=== PATIENT | female | born 1960 | race Caucasian/White ===

== ENCOUNTER 2016-04-25 11:31 | Emergency (ER) | payer OTHER ==
[~2016-04-25] VITALS: Ht 172.7 cm; Wt 125.5 kg
[~2016-04-25 11:31] MED LIST: 00186-0370-20 IH; ADVAIR 250/28 DISKU1 IH; ALBUTEROL1.25 MG/3 IH; AMOXICILLIN 8751 TAB PO; ATROVENT INHALE14 GM IH; ATROVENT NASAL15 ML NS; BIAXIN 500MG T500 MG PO; CALCIUM 500500 M1; CARAFATE 1GM1 G PO; CARTIA; CEFTIN 250250 MG/TAB PO; CEFTIN500 MG PO; CELESTONE30 MG/5 ML; CELESTONE30 MG/5 ML IA; CEPHALEXIN500 M1 PO; CYMBALTA 60MG60 MG PO; DESYREL DIVIDO150 M1 PO; DOCUSATE CALCI100 MG PO; EMBREL IJ; ENBREL50 MG/ML SC; FLEXERIL10 MG PO; HYDRODIURIL25 MG PO; HYGROTON25 MG PO; IMITREX ST6 MG/0.5 M SC; INDOCIN SR 75MG75 MG PO; LEVAQUIN 250MG250 MG PO; LEVAQUIN 750MG750 M1 PO; LIDODERM PATCH TP; LIDODERM5% TP; LYRICA50 MG PO; MACROBID 1100 MG/CAP PO; NAPROSYN500 MG PO; NEXIUM 40MG40 MG PO; NEXIUM40 MG PO; OXYCONTIN20 MG PO; PERCOCET 325 MG1 TA2 PO; PHENERGAN 25 TA25 MG PO; PHENERGAN W/CO120 M1 PO; PLAQUENIL 200M200 MG PO; POTASSIUM75 MG PO; POTASSIUM99 MG PO; PREDNISONE10 MG PO; PREDNISONE20 MG PO; RESTORIL 1515 MG/CAP PO; ROXICODONE15 MG PO; ROXICODONE5 MG PO; RT SPIRIVA18 MCG IH; SYNTHROID0.05 MG PO; SYNTHROID0.075 MG/T PO; SYNTHROID0.112 MG/T PO; TAZTIA180; TOPAMAX 100MG100 M1 PO; TOPAMAX50 MG PO; TRAZADONE HYDR100 MG PO; TUDORZA IH; ULTRAM 50MG TAB50 MG PO; ULTRAM ER100 MG PO; VENTOLIN0.09 MG IH; VIT D; VITAMIN D1000 IU PO; ZANAFLEX CAPSULE4 MG PO; ZITHROMAX 250M250 MG PO; ZOFRAN 4MG T4 MG/TAB PO; ZOFRAN ODT4 MG PO; [UNRECOGNIZED DRUG - OTHER]; cartia xt
[2016-04-25 11:43] VITALS: BP 130/83; TEMP 98
[2016-04-25] MEDS ORDERED: MOVANTIK25 MG PO (12:40)
[2016-04-25] MEDS ORDERED: CARTIA XT180 MG PO (12:40)
[2016-04-25 14:32] VITALS: PULSE 96
== END 2016-04-25 14:33 | disposition home or self-care (01) ==
LOC: COL.ER 11:31
DX: M54.42 Lumbago with sciatica, left side (principal); M54.41 Lumbago with sciatica, right side; Z98.1 Arthrodesis status

== ENCOUNTER 2016-06-15 18:46 | Emergency (ER) | payer MEDICARE, BC ==
[~2016-06-15] VITALS: Ht 172.7 cm; Wt 122.7 kg
[~2016-06-15 18:46] MED LIST changes: +CARTIA XT180 MG PO; +MOVANTIK25 MG PO
[2016-06-15 18:52] VITALS: TEMP 98
[2016-06-15 19:52] LABS: PH 5 (5-8); SQUAMOUS EPITHELIAL 0-2 /hpf; URINE APPEARANCE Cloudy; URINE BACTERIA Rare /hpf; URINE BILIRUBIN Negative (NEGATIVE); URINE BLOOD 2+ (NEGATIVE); URINE COLOR Yellow; URINE GLUCOSE Negative (NEGATIVE); URINE KETONE Negative (NEGATIVE); URINE RBC >50 /hpf; URINE UROBILINOGEN Negative (NEGATIVE); URINE WBC >50 /hpf
[2016-06-15] MEDS ORDERED: LEVAQUIN 2250 MG/TAB PO (20:39)
[2016-06-15] MEDS ORDERED: PYRIDIUM 100MG100 MG PO (20:39)
[2016-06-15 20:49] VITALS: BP 126/82; PULSE 118
== END 2016-06-15 20:49 | disposition home or self-care (01) ==
LOC: COL.ER 18:46
PROVIDERS: Nurse Practitioner
DX: N39.0 Urinary tract infection, site not specified (principal); J45.909 Unspecified asthma, uncomplicated

== ENCOUNTER 2016-07-12 13:53 | Day surgery (SDC) | payer MEDICARE, BC ==
[~2016-07-12] VITALS: Ht 172.7 cm; Wt 122.3 kg
[~2016-07-12 13:53] MED LIST changes: +LEVAQUIN 2250 MG/TAB PO; +PYRIDIUM 100MG100 MG PO
[2016-07-12] MEDS ORDERED: PHENTERMINE15 MG PO (14:18)
[2016-07-12] MEDS ORDERED: ULTRAM ER100 MG PO (14:19)
[2016-07-12] MEDS ORDERED: PRIL40 PO (14:20)
[2016-07-12 14:39] VITALS: BP 150/85; PULSE 106; TEMP 97.2
[2016-07-12 15:50] VITALS: BP 145/91; PULSE 109; TEMP 97.2
[2016-07-12 16:05] VITALS: BP 157/97; PULSE 110
[2016-07-12 16:20] VITALS: BP 146/73; PULSE 106
[2016-07-12 16:35] VITALS: BP 146/97; PULSE 108
== END 2016-07-12 16:45 | disposition home or self-care (01) ==
LOC: SDCO 13:53
DX: Z86.010 Personal history of colon polyps (principal); E78.00 Pure hypercholesterolemia, unspecified; M06.9 Rheumatoid arthritis, unspecified; Z96.651 Presence of right artificial knee joint; Z80.9 Family history of malignant neoplasm, unspecified; J45.909 Unspecified asthma, uncomplicated; G43.909 Migraine, unspecified, not intractable, without status migrainosus
CPT/HCPCS: OP; J2250; J2405; J3010; J7030

== ENCOUNTER 2016-11-19 18:53 | Emergency (ER) | payer MEDICARE, BC ==
[~2016-11-19] VITALS: Ht 175.3 cm; Wt 102.3 kg
[~2016-11-19 18:53] MED LIST changes: +PHENTERMINE15 MG PO; +PRIL40 PO
[2016-11-19 18:57] VITALS: BP 148/83; TEMP 98
[2016-11-19] MEDS ORDERED: SYNTHROID0.125 MG/T PO (19:07)
[2016-11-19] MEDS ORDERED: TESSALON P100 MG/CAP PO (19:27)
[2016-11-19 19:55] LABS: INFLUENZA B NEGATIVE
[2016-11-19 20:11] VITALS: PULSE 101
== END 2016-11-19 20:12 | disposition home or self-care (01) ==
LOC: COL.ER 18:53
PROVIDERS: Emergency Medicine
DX: J06.9 Acute upper respiratory infection, unspecified (principal); J02.9 Acute pharyngitis, unspecified; E03.9 Hypothyroidism, unspecified; K21.9 Gastro-esophageal reflux disease without esophagitis; Z90.49 Acquired absence of other specified parts of digestive tract; Z90.89 Acquired absence of other organs; Z98.890 Other specified postprocedural states

== ENCOUNTER 2017-06-17 20:05 | Emergency (ER) | payer MEDICARE ==
[~2017-06-17] VITALS: Ht 175.3 cm; Wt 119.2 kg
[~2017-06-17 20:05] MED LIST changes: +SYNTHROID0.125 MG/T PO; +TESSALON P100 MG/CAP PO
[2017-06-17 20:08] VITALS: TEMP 97.9
[2017-06-17] MEDS ORDERED: LEVOXYL0.112 MG PO (20:33)
[2017-06-17] MEDS ORDERED: OXYCONTIN30 MG PO (20:34)
[2017-06-17] MEDS ORDERED: PROAIR HFA0.09 MG/AC IH (20:34)
[2017-06-17 20:40] LABS: COLLECTION METHOD CLEAN CATCH
[2017-06-17 20:45] LABS: MUCOUS Present /lpf; PH 7 (5-8); SQUAMOUS EPITHELIAL 0-2 /hpf; URINE APPEARANCE Hazy; URINE BACTERIA Rare /hpf; URINE BILIRUBIN Negative (NEGATIVE); URINE BLOOD 1+ (NEGATIVE); URINE COLOR Yellow; URINE GLUCOSE Negative (NEGATIVE); URINE KETONE Negative (NEGATIVE); URINE LEUKOCYTE ESTERASE 3+ (NEGATIVE); URINE NITRATE Positive (NEGATIVE); URINE PROTEIN(semi-quant) Negative (NEGATIVE); URINE RBC 0-2 /hpf; URINE UROBILINOGEN Negative (NEGATIVE)
[2017-06-17 20:57] LABS: BASO # 0.1 (0.0-0.2); BASO % 0.5 % (0.0-2.0); EOS # 0.2 (0.0-0.7); GRAN # 5.5 (1.4-6.5); GRAN % 50.1 % (42.2-75.2); HEMATOCRIT 41.9 % (37.0-47.0); HEMOGLOBIN 14.2 g/dl (12.5-16.0); LYMPH # 4.5 (1.2-3.4); LYMPH % 40.6 % (20.0-51.0); MEAN CELL VOLUME 89 fl (80.0-100.0); MEAN CORPUSCULAR HEMOGLOBIN 30 pg (27.0-31.0); MEAN CORPUSCULAR HGB CONC 34 g/dl (33.0-37.0); MEAN PLATELET VOLUME 9.7 fl (7.4-10.4); MONO # 0.7 (0.1-0.6); MONO % 6.5 % (1.7-9.3); PLATELET COUNT 364 K/mm3 (130-400); RED BLOOD COUNT 4.71 M/mm3 (4.10-5.30)
[2017-06-17 21:08] LABS: ALBUMIN 3.8 gm/dL (3.5-5.0); BILIRUBIN,TOTAL 0.2 mg/dL (0.0-1.0); C-REACTIVE PROTEIN 0.7 mg/dL (0.0-0.9); CALCIUM 9.2 mg/dL (8.4-10.2); CREATININE, serum 0.84 mg/dL (0.52-1.25); TOTAL PROTEIN 7.8 gm/dL (6.4-8.2)
[2017-06-17] MEDS ORDERED: CEFTIN500 MG PO (21:20)
[2017-06-17 22:45] VITALS: BP 136/78; PULSE 102
== END 2017-06-17 23:07 | disposition home or self-care (01) ==
LOC: COL.ER 20:05
PROVIDERS: Emergency Medicine
DX: N39.0 Urinary tract infection, site not specified (principal); J45.909 Unspecified asthma, uncomplicated; Z87.442 Personal history of urinary calculi; Z98.890 Other specified postprocedural states; Z96.0 Presence of urogenital implants
CPT/HCPCS: J0696; J1885; J2175; J7030

== ENCOUNTER 2018-02-17 18:35 | Emergency (ER) | payer MEDICARE ==
[~2018-02-17] VITALS: Ht 175.3 cm; Wt 120.5 kg
[~2018-02-17 18:35] MED LIST changes: +LEVOXYL0.112 MG PO; +OXYCONTIN30 MG PO; +PROAIR HFA0.09 MG/AC IH
[2018-02-17 18:40] VITALS: TEMP 97.6
[2018-02-17 19:14] LABS: COLLECTION METHOD CLEAN CATCH
[2018-02-17 19:18] LABS: BASO % 0.4 % (0.0-2.0); EOS # 0.2 (0.0-0.7); GRAN % 55.1 % (42.2-75.2); LYMPH % 36.3 % (20.0-51.0); MEAN CELL VOLUME 87 fl (80.0-100.0); MEAN CORPUSCULAR HEMOGLOBIN 29 pg (27.0-31.0); MEAN CORPUSCULAR HGB CONC 33 g/dl (33.0-37.0); MEAN PLATELET VOLUME 9.8 fl (7.4-10.4); MONO # 0.7 (0.1-0.6); MONO % 5.9 % (1.7-9.3); PLATELET COUNT 388 K/mm3 (130-400); RED BLOOD COUNT 4.85 M/mm3 (4.10-5.30); REDCELL DISTRIBUTION WIDTH-CV 13.2 % (11.5-14.5)
[2018-02-17 19:20] LABS: MUCOUS Present /lpf; PH 5 (5-8); SQUAMOUS EPITHELIAL 0-2 /hpf; URINE APPEARANCE Clear; URINE BACTERIA Rare /hpf; URINE BILIRUBIN Negative (NEGATIVE); URINE BLOOD Negative (NEGATIVE); URINE COLOR Yellow; URINE GLUCOSE Negative (NEGATIVE); URINE KETONE Negative (NEGATIVE); URINE LEUKOCYTE ESTERASE Trace (NEGATIVE); URINE NITRATE Negative (NEGATIVE); URINE PROTEIN(semi-quant) Negative (NEGATIVE); URINE RBC 0-2 /hpf; URINE UROBILINOGEN Negative (NEGATIVE)
[2018-02-17 19:30] LABS: BILIRUBIN,TOTAL 0.3 mg/dL (0.0-1.0); CREATININE, serum 0.77 mg/dL (0.52-1.25); TOTAL PROTEIN 7.3 gm/dL (6.4-8.2)
[2018-02-17 19:43] LABS: CALCIUM 9.4 mg/dL (8.4-10.2); POTASSIUM 3.7 mmol/L (3.4-5.0)
[2018-02-17] MEDS ORDERED: OMNICEF 300MG300 MG PO (20:49)
[2018-02-17 21:17] VITALS: BP 162/82; PULSE 94
== END 2018-02-17 21:17 | disposition home or self-care (01) ==
LOC: COL.ER 18:35
PROVIDERS: Family Medicine
DX: R19.7 Diarrhea, unspecified (principal); I10 Essential (primary) hypertension; J20.9 Acute bronchitis, unspecified; E86.9 Volume depletion, unspecified; Z90.89 Acquired absence of other organs; Z90.710 Acquired absence of both cervix and uterus; Z90.49 Acquired absence of other specified parts of digestive tract
CPT/HCPCS: J7030

== ENCOUNTER → 2018-03-09 | Outpatient (CLI) | payer OTHER ==
[~2018-03-09] MED LIST changes: +OMNICEF 300MG300 MG PO
== END ==
LOC: COL.RAD 10:21
DX: M54.6 Pain in thoracic spine (principal)

== ENCOUNTER 2018-03-24 23:00 | Emergency (ER) | payer MEDICARE ==
[~2018-03-24] VITALS: Ht 175.3 cm; Wt 125.0 kg
[2018-03-24 23:03] VITALS: BP 146/76; TEMP 98.3
[2018-03-24] MEDS ORDERED: ROXICODONE 55 MG/TAB PO (23:39)
[2018-03-24] MEDS ORDERED: OXYCONTIN 20MG20 MG PO (23:40)
[2018-03-24] MEDS ORDERED: ULTRAM ER100 MG PO (23:40)
[2018-03-25 01:16] VITALS: PULSE 89
== END 2018-03-25 01:17 | disposition home or self-care (01) ==
LOC: COL.ER 23:00
DX: G89.18 Other acute postprocedural pain (principal); M25.531 Pain in right wrist; I10 Essential (primary) hypertension; E66.9 Obesity, unspecified; M06.9 Rheumatoid arthritis, unspecified; Z90.89 Acquired absence of other organs
CPT/HCPCS: J1170; J1885

== ENCOUNTER → 2018-07-14 | Emergency (ER) | payer MEDICARE ==
[~2018-07-14] VITALS: Ht 172.7 cm; Wt 129.5 kg
[~2018-07-14] MED LIST changes: +OXYCONTIN 20MG20 MG PO; +ROXICODONE 55 MG/TAB PO
[2018-07-14 11:38] VITALS: TEMP 98.1
[2018-07-14 12:33] VITALS: BP 143/80; PULSE 96
== END ==
LOC: COL.ER 11:33
DX: M25.572 Pain in left ankle and joints of left foot (principal); X50.1XXA Overexertion from prolonged static or awkward postures, initial encounter; Y92.009 Unspecified place in unspecified non-institutional (private) residence as the place of occurrence of the external cause

== ENCOUNTER 2018-07-25 11:33 | Inpatient (IN) | payer MEDICARE ==
[2018-07-25] VITALS (330 sets, daily range): BP systolic 74–115; BP diastolic 37–70; PULSE 119–135; TEMP 101.3–102.2; O2SAT 45–100
[~2018-07-25] VITALS: Ht 172.7 cm; Wt 141.7 kg
[2018-07-25] MEDS ORDERED: ARMOUR THYROID60 MG PO (12:05)
[2018-07-25 12:43] LABS: ALBUMIN 4.2 gm/dL (3.5-5.0); BILIRUBIN,TOTAL 0.5 mg/dL (0.0-1.0); C-REACTIVE PROTEIN 1.8 mg/dL (0.0-0.9); CALCIUM 9.3 mg/dL (8.4-10.2); CREATININE, serum 0.76 (0.52-1.25); TOTAL PROTEIN 7.8 gm/dL (6.4-8.2)
[2018-07-25 12:48] LABS: BASO # 0.1 (0.0-0.2); BASO % 0.3 % (0.0-2.0); EOS # 0.1 (0.0-0.7); EOS % 0.4 % (0-4.0); GRAN # 13.8 (1.4-6.5); GRAN % 84.3 % (42.2-75.2); HEMATOCRIT 43.4 % (37.0-47.0); HEMOGLOBIN 14.5 g/dl (12.5-16.0); LYMPH # 1.7 (1.2-3.4); LYMPH % 10.4 % (20.0-51.0); MEAN CELL VOLUME 86 fl (80.0-100.0); MEAN CORPUSCULAR HEMOGLOBIN 29 pg (27.0-31.0); MEAN CORPUSCULAR HGB CONC 33 g/dl (33.0-37.0); MEAN PLATELET VOLUME 9.9 fl (7.4-10.4); MONO # 0.7 (0.1-0.6); PLATELET COUNT 340 K/mm3 (130-400); RED BLOOD COUNT 5.03 M/mm3 (4.10-5.30); REDCELL DISTRIBUTION WIDTH-CV 13.6 % (11.5-14.5)
[2018-07-25 13:22] LABS: COLLECTION METHOD CLEAN CATCH
[2018-07-25 13:52] LABS: MUCOUS Present /lpf; PH 5 (5-8); SQUAMOUS EPITHELIAL 0-2 /hpf; URINE APPEARANCE Hazy; URINE BACTERIA Rare /hpf; URINE BILIRUBIN Negative (NEGATIVE); URINE BLOOD 1+ (NEGATIVE); URINE COLOR Yellow; URINE GLUCOSE Negative (NEGATIVE); URINE KETONE Negative (NEGATIVE); URINE LEUKOCYTE ESTERASE 1+ (NEGATIVE); URINE NITRATE Positive (NEGATIVE); URINE PROTEIN(semi-quant) Negative (NEGATIVE); URINE RBC 0-2 /hpf; URINE UROBILINOGEN Negative (NEGATIVE)
--- NOTE | 2018-07-25 16:35 | NUR ---
MD Abraham from ED here on unit assessing pt further. Additional labs and IV fluids ordered and carried out.
--- NOTE | 2018-07-25 17:04 | NUR ---
MD Zaina in room assessing pt
--- NOTE | 2018-07-25 17:10 | NUR ---
Droplet precautions in place to rule out meningitis per MD Zaina
--- NOTE | 2018-07-25 17:20 | NUR ---
Anesthesia paged 2039: Javier Robison CRNA called in - informed of lumbar puncture request by MD Zaina. Informed of recent pain pump insertion and pt's history of Meningitis.
--- NOTE | 2018-07-25 17:58 | NUR ---
MD Zaina on unit, at bedside. informed anesthesia page and return call completed, anesthesia has not been on unit
--- NOTE | 2018-07-25 18:18 | NUR ---
Africa Araujo by and stated he would be unable to perform lumbar puncture d/t existing pain pump. He did reccomend fluoroscopy guided LP performed by radiology. MD Zaina notified
--- NOTE | 2018-07-25 19:05 | NUR ---
Report received from Rashaun Mcconnell RN.
--- NOTE | 2018-07-25 19:15 | NUR ---
BEDSIDE REPORT GIVEN TO JESSE SANDHU.
[2018-07-26] VITALS (892 sets, daily range): BP systolic 97–129; BP diastolic 31–87; PULSE 97–118; TEMP 98.5–102.7; O2SAT 68–100
--- NOTE | 2018-07-26 | NUR ---
Pt was assisted up to the commode at this time. During linen change pt requested to sit in the recliner. Pt ambulated, with no lightheadedness reported and a steady gait, around the bed and into the locked recliner for approximately 5 minutes following linen change.
--- NOTE | 2018-07-26 02:00 | NUR ---
Pt requested a snack at this time. Used the bed to put onself in low fowlers position. Requested betsey crackers and peanut butter with Sprite to drink. Following snack pt reported an increase in headache although PRN pain medication had recently been provided. Pt reports medication "takes the edge off" although "does not last very long".
[2018-07-26 07:00] LABS: MEAN CELL VOLUME 85 fl (80.0-100.0); MEAN CORPUSCULAR HGB CONC 34 g/dl (33.0-37.0); MEAN PLATELET VOLUME 9.8 fl (7.4-10.4); PLATELET COUNT 260 K/mm3 (130-400); RED BLOOD COUNT 3.97 M/mm3 (4.10-5.30); REDCELL DISTRIBUTION WIDTH-CV 14.4 % (11.5-14.5)
--- NOTE | 2018-07-26 07:00 | NUR ---
Report provided to Rashaun Mcconnell RN.
[2018-07-26 07:06] LABS: CALCIUM 7.3 mg/dL (8.4-10.2); CREATININE, serum 0.84 (0.52-1.25); INR 1.4 (0.8-3.0); POTASSIUM 3.1 mmol/L (3.4-5.0); PROTHROMBIN TIME 15.9 SECONDS (9.7-12.8)
[2018-07-26 07:07] LABS: HEMATOCRIT 33.9 % (37.0-47.0); HEMOGLOBIN 11.6 g/dl (12.5-16.0); MEAN CORPUSCULAR HEMOGLOBIN 29 pg (27.0-31.0)
--- NOTE | 2018-07-26 07:14 | NUR ---
MD Stephanie notified of consult. Radiology called to inquiry on schedule - will call back with time. -- This note is regarding Fluoro guided Lumbar Puncture to r/o meningitis
[2018-07-26 07:39] LABS: BAND 10 % (0-10); LYMPHOCYTE 19 % (20.0-51.0); NEUTROPHILS 67 % (42.0-75.2)
[2018-07-26 07:40] LABS: PLATELET ESTIMATE NORMAL (NORMAL); TOXIC GRANULATION PRESENT
--- NOTE | 2018-07-26 08:04 | NUR ---
Radiology dept returned call - scheduled for 100-1030 for procedure. MD Stephanie called to speak with pt before procedure to answer questions and obtain consent
--- NOTE | 2018-07-26 10:00 | NUR ---
Pt off unit for CT and LP
--- NOTE | 2018-07-26 11:19 | NUR ---
SW attended clinical rounding Plan: Patient reports plan to return home with her Saud Goldstein as care support unless otherwise specified by DR. Assess: Patient shares that she lives locally with spouse and children. Patient reports that her is her named and written DPOA and her sister Abimael Parker is her an emergency contact secondary to and can be reached at . Patient reports obtaining RX at [facility] w/o issue. Patient denies the use of any DME. Patient reports having adv-dir and PCP is Dr. Todd Moreno at [facility]. Patient reports ability to drive but will have transport home. Action: Early stage of assessment. SW will continue to follow for care needs if they arise. No additional needs at this time.
[2018-07-26 11:28] LABS: TOTAL PROTEIN,CSF 55 mg/dL (15-45)
[2018-07-26 12:33] LABS: CSF APPEARANCE CLEAR; CSF COLOR COLORLESS; CSF MONONUCLEAR 10 % (70-100); CSF POLYMORPHONUCLEAR 90 % (0-6); CSF RBC 503 /mm3 (0-0)
--- NOTE | 2018-07-26 14:30 | NUR ---
Jose,Pharmacist called to inquire about Vancomycin Trough level - informed to continue with scheduled dose at 1500 for 1.5g IV Vancomycin
--- NOTE | 2018-07-26 21:15 | NUR ---
Moderate amount of yellowish dried drainage noted on bandage covering mid-back incision from pain pump. New bandage applied. Will continue to monitor.
[2018-07-27] VITALS (924 sets, daily range): BP systolic 96–138; BP diastolic 53–80; PULSE 99–116; TEMP 98.2–102.5; O2SAT 43–100
--- NOTE | 2018-07-27 | NUR ---
Patient continues to report having a headache; located in forehead and back of neck. Has PRN fentanyl; tolerates well but reports if "wears off fast". No other complaints at this time.
--- NOTE | 2018-07-27 03:26 | NUR ---
Called [facility] to report elevated Temp of 102.5. Tachycardia increased from baseline around 105 to 115. 650 PO Tylenol administered. Preliminary wound culture positive for staph. Reported abx william receiving. Awaiting further orders.
--- NOTE | 2018-07-27 04:40 | NUR ---
Dr. Mosqueda called to get update on patient. Updated on current status; latest temp and current abx. Requested to speak to patient on telephone as she is alert and oriented and currenlty awake.
[2018-07-27 08:27] LABS: BASO % 0.2 % (0.0-2.0); EOS # 0.1 (0.0-0.7); EOS % 0.8 % (0-4.0); GRAN # 13.1 (1.4-6.5); HEMOGLOBIN 10.6 g/dl (12.5-16.0); LYMPH # 2.7 (1.2-3.4); LYMPH % 15.9 % (20.0-51.0); MEAN CELL VOLUME 87 fl (80.0-100.0); MEAN CORPUSCULAR HEMOGLOBIN 29 pg (27.0-31.0); MEAN CORPUSCULAR HGB CONC 33 g/dl (33.0-37.0); MEAN PLATELET VOLUME 9.9 fl (7.4-10.4); MONO % 5.6 % (1.7-9.3); PLATELET COUNT 208 K/mm3 (130-400); RED BLOOD COUNT 3.65 M/mm3 (4.10-5.30); REDCELL DISTRIBUTION WIDTH-CV 14.5 % (11.5-14.5)
[2018-07-27 08:28] LABS: HEMATOCRIT 31.7 % (37.0-47.0); INR 1.2 (0.8-3.0); PROTHROMBIN TIME 14.3 SECONDS (9.7-12.8)
[2018-07-27 08:34] LABS: CALCIUM 7.7 mg/dL (8.4-10.2); CREATININE, serum 0.7 (0.52-1.25); MAGNESIUM 1.8 mg/dL (1.6-2.3); POTASSIUM 3.7 mmol/L (3.4-5.0)
--- NOTE | 2018-07-27 09:00 | NUR ---
portable chest x-ray order to confirm PICC tip location this a.m. Yesterday patient was unable to have head of bed elevated and was essentially flat for portable chest x-ray for PICC insertion yesterday. I want to confirm tip location before catheter pulled back. Portable chest x-ray reviewed and tip location noted in the lower SVC/cavoatrial junction. I will leave tip location as is. No signs or symptoms of complications noted. No concerns voiced.
--- NOTE | 2018-07-27 18:35 | NUR ---
Call from [facility]: Room 4030 has been assigned. Suni Mckeonupervisor called. Report attempted to call, RN on unit busy and unable to take report at this time. Fatiamh at [phone] is the admission/intake individual I spoke with
--- NOTE | 2018-07-27 19:40 | NUR ---
Patient assessment completed and charted at this time, please see documentation for details. Patient resting in bed, no questions at this time, complaining of headache. Patient informed of pending transfer, will notify with ETA for to follow. *2114: Spoke with Ambrosio, Beer Cooler and no transportation available as of yet. [facility] team notified at this time. Patient sleeping.
--- NOTE | 2018-07-27 19:49 | NUR ---
Report phoned to JESSE Montgomery at [facility], questions invited and answered
[2018-07-28] VITALS (60 sets, daily range): BP systolic 131; BP diastolic 82; PULSE 112; TEMP 98.7; O2SAT 93–100
--- NOTE | 2018-07-28 01:17 | NUR ---
Patient taken by [facility] to be transported to [facility] for higher level of care. Report had been given prior in evening, [facility] transfer team notified of patient ETA. Passing off care of patient at this time.
== END 2018-07-28 01:17 | disposition short-term general hospital (02) | DRG 862 ==
LOC: COL.ER 11:33 → ICU 15:45
PROVIDERS: Emergency Medicine; Nurse Practitioner; Physician Assistant
PROC: 02HV33Z Insertion of Infusion Device into Superior Vena Cava, Percutaneous Approach (ICD-10-PCS; principal; 2018-07-26)
PROC: 009U3ZX Drainage of Spinal Canal, Percutaneous Approach, Diagnostic (ICD-10-PCS; 2018-07-26)
PROC: B01B1ZZ Fluoroscopy of Spinal Cord using Low Osmolar Contrast (ICD-10-PCS; 2018-07-26)
DX: T81.44XA Sepsis following a procedure, initial encounter (principal); R65.20 Severe sepsis without septic shock; G03.9 Meningitis, unspecified; E87.2 Acidosis; N39.0 Urinary tract infection, site not specified; Z68.41 Body mass index [BMI] 40.0-44.9, adult; I10 Essential (primary) hypertension; G89.29 Other chronic pain; M54.9 Dorsalgia, unspecified; D64.9 Anemia, unspecified; E87.6 Hypokalemia; B95.0 Streptococcus, group A, as the cause of diseases classified elsewhere; B96.20 Unspecified Escherichia coli [E. coli] as the cause of diseases classified elsewhere; E66.01 Morbid (severe) obesity due to excess calories; E03.9 Hypothyroidism, unspecified; Z88.5 Allergy status to narcotic agent; Z91.048 Other nonmedicinal substance allergy status; K37 Unspecified appendicitis
CPT/HCPCS: 99223-AI; 99233-AI; A4216; C1751; J0696; J0780; J1170; J1200; J1885; J2060; J2185; J2405; J2765; J3010; J3370; J3475; J3480; J7030; J7050; Q9967

== ENCOUNTER 2018-08-07 08:11 | Outpatient (CLI) | payer OTHER ==
[~2018-08-07] VITALS: Ht 172.7 cm; Wt 131.6 kg
[~2018-08-07 08:11] MED LIST changes: +ARMOUR THYROID60 MG PO
--- NOTE | 2018-08-07 09:00 | NUR ---
patient here for PICC assessment. Right upper arm PICC intact. Dressing dated 08/06. Unable to flush 1 port. Other port with good blood return noted. Chest x-ray done to determine tip location. Informed primary care nurse to obtain an order for cath winnie.
[2018-08-07 10:37] VITALS: BP 134/56; PULSE 83; TEMP 97
--- NOTE | 2018-08-07 11:20 | NUR ---
CATH FLOW GIVEN AT 1050, IN 30 MINS 1120 ABLE TO FLUSH PURPLE LINE AND GET 10CC OF BLOOD RETURN, WRAPPED SITE, PT WILL GET LAB AND MED AT HOME
== END 2018-08-07 11:45 | disposition home or self-care (01) ==
LOC: EUO 08:11
DX: Z45.2 Encounter for adjustment and management of vascular access device (principal); J98.6 Disorders of diaphragm; I51.7 Cardiomegaly
CPT/HCPCS: J2997

== ENCOUNTER 2018-08-16 20:52 | Emergency (ER) | payer OTHER ==
[~2018-08-16] VITALS: Ht 167.6 cm; Wt 113.6 kg
[2018-08-16 20:58] VITALS: BP 143/80; TEMP 98.2
[2018-08-16 21:57] LABS: BASO # 0.1 (0.0-0.2); BASO % 0.7 % (0.0-2.0); EOS # 0.2 (0.0-0.7); EOS % 2.2 % (0-4.0); GRAN # 4.2 (1.4-6.5); GRAN % 45.6 % (42.2-75.2); HEMATOCRIT 38.6 % (37.0-47.0); HEMOGLOBIN 12.9 g/dl (12.5-16.0); LYMPH % 43.2 % (20.0-51.0); MEAN CELL VOLUME 88 fl (80.0-100.0); MEAN CORPUSCULAR HEMOGLOBIN 29 pg (27.0-31.0); MEAN CORPUSCULAR HGB CONC 33 g/dl (33.0-37.0); MEAN PLATELET VOLUME 9.9 fl (7.4-10.4); MONO # 0.7 (0.1-0.6); MONO % 8.1 % (1.7-9.3); PLATELET COUNT 337 K/mm3 (130-400); REDCELL DISTRIBUTION WIDTH-CV 14.2 % (11.5-14.5)
[2018-08-16 22:12] LABS: ALANINE AMINOTRANSFERASE 34 U/L (9-52); ALBUMIN 3.8 gm/dL (3.5-5.0); ALKALINE PHOSPHATASE 104 U/L (50-136); ANION GAP 11 mmol/L (7-16); AST,SGOT 39 U/L (15-37); BILIRUBIN,TOTAL 0.4 mg/dL (0.0-1.0); BLOOD UREA NITROGEN 11 mg/dL (7-17); C-REACTIVE PROTEIN 0.8 mg/dL (0.0-0.9); CARBON DIOXIDE 23 mmol/L (22-30); CHLORIDE 106 mmol/L (98-107); CREATININE, serum 0.71 (0.52-1.25); GLUCOSE 107 mg/dL (74-106); POTASSIUM 3.5 mmol/L (3.4-5.0); SODIUM 140 mmol/L (137-145); TOTAL PROTEIN 7.3 gm/dL (6.4-8.2)
[2018-08-16 22:35] LABS: TROPONIN-I < 0.012 ng/mL (0.000-0.035)
[2018-08-16 23:45] VITALS: PULSE 88
== END 2018-08-16 23:43 | disposition home or self-care (01) ==
LOC: COL.ER 20:52
PROVIDERS: Emergency Medicine
DX: I10 Essential (primary) hypertension (principal); J45.909 Unspecified asthma, uncomplicated
CPT/HCPCS: J2060; J2405; J3010; J7030; Q9967

== ENCOUNTER 2018-08-21 08:14 | Day surgery (SDC) | payer MEDICARE ==
[~2018-08-21] VITALS: Ht 172.7 cm; Wt 130.1 kg
[2018-08-21] MEDS ORDERED: PREDNISONE10 MG (08:31)
[2018-08-21 08:41] VITALS: BP 120/83; PULSE 95; TEMP 96.3
[2018-08-21 10:10] VITALS: BP 130/68; PULSE 87; TEMP 96.4
--- NOTE | 2018-08-21 10:18 | NUR ---
Initial visit; Patient thanked [employer] for offering comfort and prayer prior to her 'procedure.' [employer] offered spiritual care and offered God's blessings.
[2018-08-21 10:25] VITALS: BP 134/75; PULSE 80
[2018-08-21 10:40] VITALS: BP 137/66; PULSE 75
[2018-08-21 10:55] VITALS: BP 141/72; PULSE 83
--- NOTE | 2018-08-21 11:46 | NUR ---
1110 PT CAME BACK FROM ENDO PROCEDURE ALERT AND ORIENTATED, SLEEPY. DENIES PAIN, NAUSEA, VOMITING. OFFERED SPRITE, VANILLA PUDDING AND BLUBERRY MUFFIN AND TOLERATED WELL WITHOUT N/V OR PAIN. PT [id number] CAME TO ENDO TO PICK HER UP, NATALYA. DISCHARGE INSTRUCTIONS GIVEN, PT VOICED UNDERSTANDING. IV DC'D TO LEFT HAND, PT TOLERATED WELL. PT DC'D BY W/C TO FRIEND'S VEHICLE TO PT HOME.
== END 2018-08-21 11:10 | disposition home or self-care (01) ==
LOC: SDCO 08:14
DX: K29.30 Chronic superficial gastritis without bleeding (principal); K31.7 Polyp of stomach and duodenum; K21.9 Gastro-esophageal reflux disease without esophagitis; R19.7 Diarrhea, unspecified; M06.9 Rheumatoid arthritis, unspecified; M79.7 Fibromyalgia; G89.29 Other chronic pain; Z90.49 Acquired absence of other specified parts of digestive tract; Z90.721 Acquired absence of ovaries, unilateral; Z96.659 Presence of unspecified artificial knee joint; Z79.52 Long term (current) use of systemic steroids; Z88.5 Allergy status to narcotic agent; Z88.6 Allergy status to analgesic agent; Z88.2 Allergy status to sulfonamides; Z88.8 Allergy status to other drugs, medicaments and biological substances; Z91.013 Allergy to seafood; Z91.048 Other nonmedicinal substance allergy status; J45.909 Unspecified asthma, uncomplicated; E66.01 Morbid (severe) obesity due to excess calories; G40.909 Epilepsy, unspecified, not intractable, without status epilepticus; E03.9 Hypothyroidism, unspecified
CPT/HCPCS: J2704

== ENCOUNTER 2018-09-05 17:42 | Emergency (ER) | payer MEDICARE ==
[~2018-09-05] VITALS: Ht 172.7 cm; Wt 129.5 kg
[~2018-09-05 17:42] MED LIST changes: +PREDNISONE10 MG
[2018-09-05 17:53] VITALS: TEMP 98.1
[2018-09-05 20:00] VITALS: BP 138/62; PULSE 68
== END 2018-09-05 20:00 | disposition home or self-care (01) ==
LOC: COL.ER 17:42
DX: M79.605 Pain in left leg (principal); E03.9 Hypothyroidism, unspecified; J45.909 Unspecified asthma, uncomplicated; Z90.49 Acquired absence of other specified parts of digestive tract; Z87.891 Personal history of nicotine dependence; Z90.89 Acquired absence of other organs

== ENCOUNTER 2018-12-16 12:42 | Emergency (ER) | payer MEDICARE ==
[~2018-12-16] VITALS: Ht 172.7 cm; Wt 127.7 kg
[2018-12-16 12:48] VITALS: BP 131/73; TEMP 97.8
[2018-12-16 13:28] LABS: BASO # 0.1 (0.0-0.2); BASO % 0.4 % (0.0-2.0); EOS # 0.2 (0.0-0.7); EOS % 1.2 % (0-4.0); GRAN # 8.5 (1.4-6.5); GRAN % 61.5 % (42.2-75.2); HEMATOCRIT 42.8 % (37.0-47.0); HEMOGLOBIN 14.2 g/dl (12.5-16.0); LYMPH # 4.1 (1.2-3.4); LYMPH % 29.6 % (20.0-51.0); MEAN CELL VOLUME 87 fl (80.0-100.0); MEAN CORPUSCULAR HEMOGLOBIN 29 pg (27.0-31.0); MEAN CORPUSCULAR HGB CONC 33 g/dl (33.0-37.0); MEAN PLATELET VOLUME 9.5 fl (7.4-10.4); PLATELET COUNT 347 K/mm3 (130-400); REDCELL DISTRIBUTION WIDTH-CV 14.1 % (11.5-14.5)
[2018-12-16] MEDS ORDERED: DESYREL 50MG50 MG PO (13:31)
[2018-12-16 13:32] LABS: ALBUMIN 4.3 gm/dL (3.5-5.0); BILIRUBIN,TOTAL 0.4 mg/dL (0.0-1.0); CALCIUM 9.7 mg/dL (8.4-10.2); CREATININE, serum 0.77 (0.52-1.25); TOTAL PROTEIN 7.9 gm/dL (6.4-8.2)
[2018-12-16 13:41] LABS: C-REACTIVE PROTEIN 0.5 mg/dL (0.0-0.9)
[2018-12-16 15:02] LABS: COLLECTION METHOD CLEAN CATCH
[2018-12-16 15:12] LABS: MUCOUS Present /lpf; PH 5 (5-8); SQUAMOUS EPITHELIAL 0-2 /hpf; URINE APPEARANCE Clear; URINE BACTERIA None Seen /hpf; URINE BILIRUBIN Negative (NEGATIVE); URINE BLOOD Negative (NEGATIVE); URINE COLOR Yellow; URINE GLUCOSE Negative (NEGATIVE); URINE KETONE Negative (NEGATIVE); URINE LEUKOCYTE ESTERASE Negative (NEGATIVE); URINE NITRATE Negative (NEGATIVE); URINE PROTEIN(semi-quant) Negative (NEGATIVE); URINE RBC None Seen /hpf; URINE UROBILINOGEN Negative (NEGATIVE)
[2018-12-16 16:48] VITALS: PULSE 98
== END 2018-12-16 16:48 | disposition home or self-care (01) ==
LOC: COL.ER 12:42
PROVIDERS: Emergency Medicine
DX: R10.9 Unspecified abdominal pain (principal); Z90.89 Acquired absence of other organs
CPT/HCPCS: J2405; J3010; J7030; Q9967

== ENCOUNTER 2019-10-12 10:42 | Emergency (ER) | payer MEDICARE ==
[~2019-10-12] VITALS: Ht 170.2 cm; Wt 95.5 kg
[~2019-10-12 10:42] MED LIST changes: +DESYREL 50MG50 MG PO
[2019-10-12 10:51] VITALS: TEMP 97.5
[2019-10-12 11:54] LABS: BASO % 0.4 % (0.0-2.0); EOS # 0.1 (0.0-0.7); EOS % 0.5 % (0-4.0); GRAN # 7.1 (1.4-6.5); GRAN % 75.8 % (42.2-75.2); HEMATOCRIT 41.3 % (37.0-47.0); HEMOGLOBIN 13.4 g/dl (12.5-16.0); LYMPH # 1.8 (1.2-3.4); LYMPH % 18.6 % (20.0-51.0); MEAN CELL VOLUME 89 fl (80.0-100.0); MEAN CORPUSCULAR HEMOGLOBIN 29 pg (27.0-31.0); MEAN CORPUSCULAR HGB CONC 32 g/dl (33.0-37.0); MEAN PLATELET VOLUME 10.4 fl (7.4-10.4); MONO # 0.4 (0.1-0.6); MONO % 4.4 % (1.7-9.3); PLATELET COUNT 309 K/mm3 (130-400); RED BLOOD COUNT 4.66 M/mm3 (4.10-5.30); REDCELL DISTRIBUTION WIDTH-CV 13.5 % (11.5-14.5)
[2019-10-12 12:12] LABS: ALANINE AMINOTRANSFERASE 22 U/L (4-34); ALKALINE PHOSPHATASE 125 U/L (50-136); ANION GAP 10 mmol/L (7-16); AST,SGOT 33 U/L (15-37); BILIRUBIN,TOTAL 0.5 mg/dL (0.0-1.0); BLOOD UREA NITROGEN 12 mg/dL (7-17); CALCIUM 9.5 mg/dL (8.4-10.2); CARBON DIOXIDE 24 mmol/L (22-30); CHLORIDE 105 mmol/L (98-107); CREATININE, serum 0.77 (0.52-1.25); GLUCOSE 111 mg/dL (74-106); POTASSIUM 3.4 mmol/L (3.4-5.0); SODIUM 138 mmol/L (137-145); TOTAL PROTEIN 7.3 gm/dL (6.4-8.2)
[2019-10-12 12:14] LABS: C-REACTIVE PROTEIN < 0.5 mg/dL (0.0-0.9)
[2019-10-12] MEDS ORDERED: PERCOCET 325 MG1 TA2 PO (14:10)
[2019-10-12] MEDS ORDERED: FLOMAX 0.40.4 MG/CAP PO (14:10)
[2019-10-12] MEDS ORDERED: PHENERGAN 25 TA25 MG PO (14:10)
[2019-10-12 14:22] LABS: COLLECTION METHOD CLEAN CATCH
[2019-10-12 14:26] VITALS: BP 128/81; PULSE 88
[2019-10-12 14:31] LABS: MUCOUS Present /lpf; PH 5 (5-8); SQUAMOUS EPITHELIAL 0-2 /hpf; URINE APPEARANCE Hazy; URINE BACTERIA None Seen /hpf; URINE BILIRUBIN Negative (NEGATIVE); URINE BLOOD 2+ (NEGATIVE); URINE COLOR Yellow; URINE GLUCOSE Negative (NEGATIVE); URINE KETONE Negative (NEGATIVE); URINE LEUKOCYTE ESTERASE Negative (NEGATIVE); URINE NITRATE Negative (NEGATIVE); URINE PROTEIN(semi-quant) Negative (NEGATIVE); URINE UROBILINOGEN Negative (NEGATIVE)
== END 2019-10-12 14:28 | disposition home or self-care (01) ==
LOC: COL.ER 10:42
PROVIDERS: Emergency Medicine
DX: N20.1 Calculus of ureter (principal); N23 Unspecified renal colic; Z88.6 Allergy status to analgesic agent
CPT/HCPCS: J1170; J1790; J1885; J2405; J3010; J7030; Q9967

== ENCOUNTER 2019-10-16 13:42 | Day surgery (SDC) | payer MEDICARE ==
[~2019-10-16] VITALS: Ht 172.7 cm; Wt 98.9 kg
[2019-10-16] VITALS (7 sets, daily range): BP systolic 104–129; BP diastolic 52–71; PULSE 78–88; TEMP 97.1–98.1
[~2019-10-16 13:42] MED LIST changes: +FLOMAX 0.40.4 MG/CAP PO
--- NOTE | 2019-10-16 17:50 | NUR ---
Patient alert and oriented, answers questions appropriately. Post op cystoscopy. Ambulates to bathroom and voids 200ml clear yellow urine, no burning voiced. Requests supper meal. Post of VS and exercises reviewed with patient. No c/o at this time.
--- NOTE | 2019-10-16 19:00 | NUR ---
Pt. sitting up in bed at this time. Pt. has met dischcharge criteria. Gave pt. discharged paperwork. Pt. voices understanding. INT discontinued from lt. hand. Pt. escorted out by FARROWING MANAGER.
== END 2019-10-16 19:29 | disposition home or self-care (01) ==
LOC: SDCO 13:42 → SURG 17:23 → SDCO 19:29
DX: N20.1 Calculus of ureter (principal); J45.909 Unspecified asthma, uncomplicated; E03.9 Hypothyroidism, unspecified; M79.7 Fibromyalgia; M06.9 Rheumatoid arthritis, unspecified; Z86.14 Personal history of Methicillin resistant Staphylococcus aureus infection; Z20.828 Contact with and (suspected) exposure to other viral communicable diseases; Z96.651 Presence of right artificial knee joint; Z90.49 Acquired absence of other specified parts of digestive tract; Z79.899 Other long term (current) drug therapy; Z88.6 Allergy status to analgesic agent; Z88.5 Allergy status to narcotic agent; Z91.048 Other nonmedicinal substance allergy status; Z80.52 Family history of malignant neoplasm of bladder; Z80.51 Family history of malignant neoplasm of kidney; Z82.49 Family history of ischemic heart disease and other diseases of the circulatory system
CPT/HCPCS: OP; C1769; C2617; J0690; J2405; J2704; J3010; J7120; Q9967

== ENCOUNTER 2019-10-25 09:16 | Day surgery (SDC) | payer MEDICARE ==
[~2019-10-25] VITALS: Ht 170.2 cm; Wt 98.1 kg
[2019-10-25 11:03] VITALS: BP 126/70; PULSE 119; TEMP 97.3
[2019-10-25 12:59] VITALS: BP 108/61; PULSE 76
--- NOTE | 2019-10-25 12:59 | NUR ---
Returns to room 3 per cart from surgery accompanied Anna MOLINA and Paul ABERNATHY. Awake and alert. IV fluids infusing. Denies pain or nausea. Siderails up x2 and call light in reach. Spouse in room.
[2019-10-25 13:14] VITALS: BP 114/72; PULSE 69
--- NOTE | 2019-10-25 13:14 | NUR ---
Awake and is eating muffin and drinking juice. Continues to deny pain or nausea.
[2019-10-25 13:29] VITALS: BP 125/61; PULSE 72
--- NOTE | 2019-10-25 13:29 | NUR ---
Resting and offers no complaints of pain or nausea.
--- NOTE | 2019-10-25 14:05 | NUR ---
Returns to the room after urinating pink tinged urine. Gait steady and denies need for pain medication. States that she is ready to go home. IV discontinued and dresses self.
--- NOTE | 2019-10-25 14:29 | NUR ---
Discharge instructions given and signed. Patient dismissed to home driven by spouse and taken to the front door per wheelchair and assisted into vehicle by this RN with instructions in hand.
== END 2019-10-25 14:29 | disposition home or self-care (01) ==
LOC: SDCO 09:16
DX: N20.1 Calculus of ureter (principal); J45.909 Unspecified asthma, uncomplicated; E03.9 Hypothyroidism, unspecified; K75.9 Inflammatory liver disease, unspecified; M06.9 Rheumatoid arthritis, unspecified; Z90.49 Acquired absence of other specified parts of digestive tract; G43.909 Migraine, unspecified, not intractable, without status migrainosus; G89.29 Other chronic pain; K21.9 Gastro-esophageal reflux disease without esophagitis; Z46.6 Encounter for fitting and adjustment of urinary device; Z86.14 Personal history of Methicillin resistant Staphylococcus aureus infection; Z96.651 Presence of right artificial knee joint; Z88.5 Allergy status to narcotic agent; Z86.711 Personal history of pulmonary embolism
CPT/HCPCS: J0690; J1885; J2405; J2704; J3010; J7120

== ENCOUNTER → 2019-12-09 | Outpatient (CLI) | payer MEDICARE | LOC: COL.RAD 13:58 | DX: R10.11 Right upper quadrant pain (principal); Z87.442 Personal history of urinary calculi ==

== ENCOUNTER 2019-12-16 10:12 | Emergency (ER) | payer MEDICARE ==
[~2019-12-16] VITALS: Ht 172.7 cm; Wt 92.7 kg
[2019-12-16] MEDS ORDERED: PREDNISONE20 MG PO (13:50)
[2019-12-16 14:02] VITALS: BP 100/84; PULSE 95; TEMP 98.1
== END 2019-12-16 14:03 | disposition home or self-care (01) ==
LOC: COL.ER 10:12
DX: U07.1 COVID-19 (principal); J20.9 Acute bronchitis, unspecified; J45.909 Unspecified asthma, uncomplicated; Z23 Encounter for immunization; Z90.49 Acquired absence of other specified parts of digestive tract; Z88.5 Allergy status to narcotic agent; Z88.6 Allergy status to analgesic agent

== ENCOUNTER 2019-12-29 20:50 | Emergency (ER) | payer MEDICARE ==
[~2019-12-29] VITALS: Ht 172.7 cm; Wt 91.4 kg
[2019-12-29 21:10] VITALS: BP 145/94; TEMP 98
[2019-12-29 21:48] LABS: BASO % 0.3 % (0.0-2.0); EOS # 0.1 (0.0-0.7); EOS % 0.7 % (0-4.0); GRAN # 5.1 (1.4-6.5); GRAN % 55.9 % (42.2-75.2); HEMATOCRIT 42.3 % (37.0-47.0); LYMPH # 3.4 (1.2-3.4); LYMPH % 36.9 % (20.0-51.0); MEAN CELL VOLUME 83 fl (80.0-100.0); MEAN CORPUSCULAR HEMOGLOBIN 28 pg (27.0-31.0); MEAN CORPUSCULAR HGB CONC 33 g/dl (33.0-37.0); MEAN PLATELET VOLUME 10.4 fl (7.4-10.4); MONO # 0.6 (0.1-0.6); PLATELET COUNT 300 K/mm3 (130-400); REDCELL DISTRIBUTION WIDTH-CV 14.1 % (11.5-14.5)
[2019-12-29 22:01] LABS: ALANINE AMINOTRANSFERASE 39 U/L (4-34); ALKALINE PHOSPHATASE 97 U/L (50-136); ANION GAP 11 mmol/L (7-16); AST,SGOT 36 U/L (15-37); BILIRUBIN,TOTAL 0.5 mg/dL (0.0-1.0); BLOOD UREA NITROGEN 16 mg/dL (7-17); CALCIUM 9.1 mg/dL (8.4-10.2); CARBON DIOXIDE 24 mmol/L (22-30); CHLORIDE 102 mmol/L (98-107); GLUCOSE 114 mg/dL (74-106); POTASSIUM 3.6 mmol/L (3.4-5.0); SODIUM 138 mmol/L (137-145); TOTAL PROTEIN 7.2 gm/dL (6.4-8.2)
[2019-12-29 22:14] LABS: TROPONIN-I < 0.012 ng/mL (0.000-0.035)
[2019-12-29 22:24] LABS: BASOPHIL 1 % (0-2); LYMPHOCYTE 42 % (20.0-51.0); NEUTROPHILS 50 % (42.0-75.2); PLATELET ESTIMATE NORMAL (NORMAL)
[2019-12-29] MEDS ORDERED: DOXYCYCLINE 10100 MG PO (23:15)
[2019-12-30 00:22] VITALS: PULSE 91
== END 2019-12-30 00:24 | disposition home or self-care (01) ==
LOC: COL.ER 20:50
PROVIDERS: Nurse Practitioner
DX: U07.1 COVID-19 (principal); J12.89 Other viral pneumonia; Z88.5 Allergy status to narcotic agent; Z88.2 Allergy status to sulfonamides; Z88.6 Allergy status to analgesic agent; Z88.8 Allergy status to other drugs, medicaments and biological substances; Z98.890 Other specified postprocedural states
CPT/HCPCS: J2930; J7030; Q9967

== ENCOUNTER 2020-05-12 23:03 | Observation (INO) | payer MEDICARE ==
[~2020-05-12] VITALS: Ht 175.3 cm; Wt 86.4 kg
[~2020-05-12 23:03] MED LIST changes: +DOXYCYCLINE 10100 MG PO
[2020-05-12 23:27] LABS: BASO % 0.3 % (0.0-2.0); EOS # 0.1 (0.0-0.7); EOS % 0.6 % (0-4.0); GRAN # 7.4 (1.4-6.5); GRAN % 64.6 % (42.2-75.2); HEMATOCRIT 40.6 % (37.0-47.0); HEMOGLOBIN 13.1 g/dl (12.5-16.0); LYMPH # 3.2 (1.2-3.4); LYMPH % 28.4 % (20.0-51.0); MEAN CELL VOLUME 87 fl (80.0-100.0); MEAN CORPUSCULAR HEMOGLOBIN 28 pg (27.0-31.0); MEAN CORPUSCULAR HGB CONC 32 g/dl (33.0-37.0); MEAN PLATELET VOLUME 10.7 fl (7.4-10.4); MONO # 0.7 (0.1-0.6); MONO % 5.8 % (1.7-9.3); PLATELET COUNT 341 K/mm3 (130-400); RED BLOOD COUNT 4.65 M/mm3 (4.10-5.30); REDCELL DISTRIBUTION WIDTH-CV 13.5 % (11.5-14.5)
[2020-05-12 23:33] LABS: ALANINE AMINOTRANSFERASE 26 U/L (4-34); ALBUMIN 4.2 gm/dL (3.5-5.0); ALKALINE PHOSPHATASE 112 U/L (50-136); ANION GAP 11 mmol/L (7-16); AST,SGOT 27 U/L (15-37); BILIRUBIN,TOTAL 0.1 mg/dL (0.0-1.0); BLOOD UREA NITROGEN 17 mg/dL (7-17); CARBON DIOXIDE 22 mmol/L (22-30); CHLORIDE 107 mmol/L (98-107); CREATININE, serum 0.59 (0.52-1.25); GLUCOSE 137 mg/dL (74-106); POTASSIUM 3.7 mmol/L (3.4-5.0); SODIUM 140 mmol/L (137-145); TOTAL PROTEIN 7.8 gm/dL (6.4-8.2)
[2020-05-12 23:44] LABS: TROPONIN-I < 0.012 ng/mL (0.000-0.035)
[2020-05-13] VITALS (9 sets, daily range): BP systolic 110–126; BP diastolic 49–68; PULSE 63–105; TEMP 97.7–98.4
[2020-05-13] MEDS ORDERED: RELISTOR I12 MG/0.6 IJ (00:36)
--- NOTE | 2020-05-13 01:33 | NUR ---
PATIENT ARRIVED TO ROOM 359 FROM THE ER VIA WHEELCHAIR. PATIENT ALERT AND ORIENTED X'S 4. ABLE TO AMBULATE INDEPENDENTLY TO BED FROM THE WHEELCHAIR, ON ROOM AIR, DENIES PAIN OR NAUSEA AT THIS TIME. PATIENT ORIENTED TO ROOM. CALL LIGHT WITHIN REACH, BED IN LOWEST POSITION. NO REQUESTS OR CONCERNS VERBALIZED BY PATIENT AT THIS TIME.
--- NOTE | 2020-05-13 04:08 | NUR ---
BEKA GOLDSTEIN NOTIFIED OF PATIENTS D-DIMER. CT SCAN ORDERED AND PATIENT TAKEN TO CT BY THIS NURSE. PATIENT TOLERATED WELL.
[2020-05-13 07:06] LABS: BASO % 0.3 % (0.0-2.0); EOS % 0.4 % (0-4.0); GRAN # 5.4 (1.4-6.5); GRAN % 60.3 % (42.2-75.2); HEMOGLOBIN 12.2 g/dl (12.5-16.0); LYMPH # 2.9 (1.2-3.4); LYMPH % 32.1 % (20.0-51.0); MEAN CELL VOLUME 88 fl (80.0-100.0); MEAN CORPUSCULAR HEMOGLOBIN 28 pg (27.0-31.0); MEAN CORPUSCULAR HGB CONC 32 g/dl (33.0-37.0); MEAN PLATELET VOLUME 11.2 fl (7.4-10.4); MONO # 0.6 (0.1-0.6); MONO % 6.6 % (1.7-9.3); PLATELET COUNT 307 K/mm3 (130-400); RED BLOOD COUNT 4.33 M/mm3 (4.10-5.30); REDCELL DISTRIBUTION WIDTH-CV 13.6 % (11.5-14.5)
[2020-05-13 07:19] LABS: CALCIUM 9.1 mg/dL (8.4-10.2); CREATININE, serum 0.57 (0.52-1.25); POTASSIUM 3.6 mmol/L (3.4-5.0)
--- NOTE | 2020-05-13 13:23 | NUR ---
First visit from the fishing tool supervisor. prayed with patient. No other needs right now.
[2020-05-13] MEDS ORDERED: CEPHALEXIN500 M1 PO (16:46)
--- NOTE | 2020-05-13 17:13 | NUR ---
Patient resting in bed eating dinner at this time. Patient is alert and oriented, answers questions appropriately. Patient to procedures this morning, c/o headache after stress test; PRN acetaminophen given. Loop recorder placed at bedside and patient educated by laborer shellfish processing staff. Patient denied further questions. Denies further needs, call light within reach.
--- NOTE | 2020-05-13 18:29 | NUR ---
Discharge teaching completed. Discussed discharge instructions, medications, and follow up appointments, patient verbalized understanding. INT removed, catheter intact, hemostasis achieved. Telemetry unit removed. Patient dressed and escorted to ED entrance.
== END 2020-05-13 18:35 | disposition home or self-care (01) ==
LOC: COL.ER 23:03 → MEDICAL 05-13 00:29
PROVIDERS: Physician Assistant; Student in an Organized Health Care Education/Training Program; ADMIT Hospitalist
DX: R55 Syncope and collapse (principal); R00.2 Palpitations; I10 Essential (primary) hypertension; M06.9 Rheumatoid arthritis, unspecified; M79.7 Fibromyalgia; G89.29 Other chronic pain; M54.9 Dorsalgia, unspecified; G43.909 Migraine, unspecified, not intractable, without status migrainosus; E66.9 Obesity, unspecified; J45.909 Unspecified asthma, uncomplicated; G47.30 Sleep apnea, unspecified; K21.9 Gastro-esophageal reflux disease without esophagitis; E03.9 Hypothyroidism, unspecified; Z90.89 Acquired absence of other organs; Z90.49 Acquired absence of other specified parts of digestive tract; Z96.651 Presence of right artificial knee joint; Z79.899 Other long term (current) drug therapy; Z79.890 Hormone replacement therapy; Z88.5 Allergy status to narcotic agent; Z88.2 Allergy status to sulfonamides; Z91.048 Other nonmedicinal substance allergy status; Z88.8 Allergy status to other drugs, medicaments and biological substances; Z98.890 Other specified postprocedural states
CPT/HCPCS: A9500; C1764; G0378; J1650; J2785; Q9967

== ENCOUNTER 2020-07-05 21:14 | Emergency (ER) | payer MEDICARE ==
[~2020-07-05] VITALS: Ht 172.7 cm; Wt 81.8 kg
[~2020-07-05 21:14] MED LIST changes: +RELISTOR I12 MG/0.6 IJ
[2020-07-05 21:32] VITALS: TEMP 97.1
[2020-07-05 22:18] LABS: BASO % 0.3 % (0.0-2.0); EOS # 0.1 (0.0-0.7); EOS % 1.5 % (0-4.0); GRAN # 4.7 (1.4-6.5); GRAN % 52.8 % (42.2-75.2); HEMATOCRIT 38.9 % (37.0-47.0); HEMOGLOBIN 12.7 g/dl (12.5-16.0); LYMPH # 3.5 (1.2-3.4); LYMPH % 39.6 % (20.0-51.0); MEAN CELL VOLUME 89 fl (80.0-100.0); MEAN CORPUSCULAR HEMOGLOBIN 29 pg (27.0-31.0); MEAN CORPUSCULAR HGB CONC 33 g/dl (33.0-37.0); MEAN PLATELET VOLUME 10.1 fl (7.4-10.4); MONO # 0.5 (0.1-0.6); MONO % 5.6 % (1.7-9.3); PLATELET COUNT 311 K/mm3 (130-400); RED BLOOD COUNT 4.39 M/mm3 (4.10-5.30); REDCELL DISTRIBUTION WIDTH-CV 14.6 % (11.5-14.5)
[2020-07-05 22:27] LABS: ALANINE AMINOTRANSFERASE 17 U/L (4-34); ALBUMIN 3.9 gm/dL (3.5-5.0); ALKALINE PHOSPHATASE 103 U/L (50-136); ANION GAP 3 mmol/L (7-16); AST,SGOT 25 U/L (15-37); BILIRUBIN,TOTAL 0.3 mg/dL (0.0-1.0); BLOOD UREA NITROGEN 17 mg/dL (7-17); CALCIUM 9.2 mg/dL (8.4-10.2); CARBON DIOXIDE 25 mmol/L (22-30); CHLORIDE 107 mmol/L (98-107); CREATININE, serum 0.61 (0.52-1.25); GLUCOSE 96 mg/dL (74-106); POTASSIUM 3.5 mmol/L (3.4-5.0); SODIUM 135 mmol/L (137-145); TOTAL PROTEIN 7.4 gm/dL (6.4-8.2)
[2020-07-05 22:39] LABS: TROPONIN-I < 0.012 ng/mL (0.000-0.035)
[2020-07-05 22:50] LABS: MAGNESIUM 1.9 mg/dL (1.6-2.3); PHOSPHOROUS 4.3 mg/dL (2.5-4.5)
[2020-07-06 00:15] VITALS: BP 118/62; PULSE 97
== END 2020-07-06 00:21 | disposition home or self-care (01) ==
LOC: COL.ER 21:14
PROVIDERS: Emergency Medicine
DX: R00.2 Palpitations (principal); I47.9 Paroxysmal tachycardia, unspecified; R55 Syncope and collapse; J45.909 Unspecified asthma, uncomplicated; E66.9 Obesity, unspecified

== ENCOUNTER 2020-07-27 07:04 | Inpatient (IN) | payer MEDICARE ==
[~2020-07-27] VITALS: Ht 172.7 cm; Wt 88.1 kg
[2020-07-27] VITALS (13 sets, daily range): BP systolic 95–133; BP diastolic 54–96; PULSE 63–81; TEMP 97.8–98.2
[2020-07-27 08:32] LABS: HEMOGLOBIN 12.2 g/dl (12.5-16.0); MEAN CELL VOLUME 88 fl (80.0-100.0); MEAN CORPUSCULAR HEMOGLOBIN 30 pg (27.0-31.0); MEAN CORPUSCULAR HGB CONC 33 g/dl (33.0-37.0); MEAN PLATELET VOLUME 10.1 fl (7.4-10.4); PLATELET COUNT 274 K/mm3 (130-400); RED BLOOD COUNT 4.14 M/mm3 (4.10-5.30); REDCELL DISTRIBUTION WIDTH-CV 13.8 % (11.5-14.5)
[2020-07-27 08:33] LABS: HEMATOCRIT 36.6 % (37.0-47.0)
[2020-07-27] MEDS ORDERED: HYGROTON 2525 MG/TAB (08:33)
[2020-07-27] MEDS ORDERED: ROXICODONE 55 MG/TAB PO (08:36)
[2020-07-27] MEDS ORDERED: OXYCONTIN 20MG20 MG PO (08:36)
[2020-07-27 08:39] LABS: CALCIUM 8.9 mg/dL (8.4-10.2); CREATININE, serum 0.59 (0.52-1.25); POTASSIUM 3.4 mmol/L (3.4-5.0)
[2020-07-27 08:50] LABS: PROTHROMBIN TIME 11.6 SECONDS (9.7-12.8)
[2020-07-27] MEDS ORDERED: CELESTONE30 MG/5 ML INJ (09:02)
[2020-07-27] MEDS ORDERED: NEXIUM 40MG40 MG PO (09:03)
[2020-07-27] MEDS ORDERED: D3-5050000 IU PO (09:03)
[2020-07-27] MEDS ORDERED: PROAIR HFA0.09 MG/AC IH (09:04)
[2020-07-27] MEDS ORDERED: LIDODERM 5% PATC1 EA TP (09:04)
[2020-07-27] MEDS ORDERED: DESYREL 50MG50 MG PO (09:05)
--- NOTE | 2020-07-27 09:07 | NUR ---
Pt to procedure.report to Loi Mcdonnell.
--- NOTE | 2020-07-27 09:22 | NUR ---
SEE MERGE FOR ALL MEDICATION ADMINISTRATION TIMES, INTRA AND POST SEDATION ASSESSMENTS
--- NOTE | 2020-07-27 12:15 | NUR ---
Patient received from lab clerk. Report from Keica. Patient resting in bed. family at bedside. Patient complaints of pain to Left chest. Prn roxicodone given per orders. ice pack to chest. lunch ordered. hank quiros.
--- NOTE | 2020-07-27 13:30 | NUR ---
Patient pain remains elevated at 7/10. Cardiology notifed. Concerns of hematoma, benneath icd insertion-skin feels firm. Pressure dressing per orders and ice pack on. Sling in place. Pillow benneath sling to relieve pulling pressure. Patient reports an allergy to paper tape. (removed all papertape from skin and foam tape used for pressure). Vss ,tele on.
--- NOTE | 2020-07-27 16:06 | NUR ---
Patietn resting in bed. Visiting with family memeber. Reports a headache. Tyelnol PRN given. Still rating pain 8/10. Ice pack to left chest. Pressure dressing intact. Ivf to L.hand. Tolerating diet without nausea. Tele on. Will monitor
--- NOTE | 2020-07-27 16:52 | NUR ---
Patient up to the bathroom, voided without difficulty. Continues to have pain in her chest. Oxicodone given, tyelnol did not relieve pain. incisions site CDI. Vss, HR 60s. Will continue to montior.
--- NOTE | 2020-07-27 19:12 | NUR ---
Patient reports her pain is better managed at this time. 05/16. She is feeling better. Sling remains on. ice pack to insertion site. Site CDI. Ivf. She tolerated dinner. Report to alejandranurse
--- NOTE | 2020-07-27 20:30 | NUR ---
PATIENT IS CALM IN THE ROOM.DUE MEDS GIVEN.ASSESSMENT DONE.NO BLEEDING OBSERVED ON THE LT CHEST SITE.RATES PAIN AT 5.MEDICATION GIVEN PER ORDER.
--- NOTE | 2020-07-27 22:47 | NUR ---
PATIENT HAS A LOW BP 95/66 TELEHEALTH COORDINATOR SERVICE TEAM LEADER INFORMED PLAN HOLD SOTALOL.GAVE ANCEF IV 1G X2 HAD NOT SEEN THE 2G ANCEF.PATIENT TOOK TRAZODONE 5OMG SAYS THATS HER REGULAR DOSE.
[2020-07-28 00:01] VITALS: BP 90/49; PULSE 83; TEMP 98.1
--- NOTE | 2020-07-28 06:14 | NUR ---
PATIENT HAD A CALM NIGHT.DUE MEDS GIVEN.PATIENT STATES THAT SHE TALKED TO HER DOCTOR ABOUT SOME MEDS DOSAGE.TOOK HER REGULAR DOSAGE.REPORTS OF HEADACHE TYLENOL GIVEN.NO OTHER NEEDS AT THIS TIME.
--- NOTE | 2020-07-28 06:45 | NUR ---
awake resting in bed, bedside shift report received from JESSE Peng
[2020-07-28 07:16] VITALS: BP 87/52; PULSE 75; TEMP 98.3
[2020-07-28 07:43] VITALS: BP 106/57; PULSE 70; TEMP 98.2
[2020-07-28 07:47] LABS: CALCIUM 8.2 mg/dL (8.4-10.2); CREATININE, serum 0.59 (0.52-1.25); MAGNESIUM 1.7 mg/dL (1.6-2.3); POTASSIUM 3.7 mmol/L (3.4-5.0)
--- NOTE | 2020-07-28 08:35 | NUR ---
in bed and appears to be sleeping, eyes closed, resp quiet and easy, sling in place to left arm
--- NOTE | 2020-07-28 09:16 | NUR ---
reuesting tylenol for a headache, explained it is too early for tylenol and offered roxicodone, she declines this and will wait until time for tylenol
--- NOTE | 2020-07-28 09:38 | NUR ---
LINDSEY met with the patient to discuss discharge plan. The patient lives in [place] with her , Ricky (ph#[phone]). She reports independence with ADLs and does not have any DME. The patient's PCP is Dr. Todd Moreno and she receives her medications from [facility]. She reports no difficulties obtaining her meds. The patient does not have a DPOA-HC in EMR, but she states that she does have one completed and that Dr. Moreno's office should have a copy of it. She states that she designated her . LINDSEY contacted Dr. Moreno's office to inquire if they have her DPOA-HC. The receptionist secretary reports that they do not. The patient plans to return home with his upon discharge. No additional needs at this time. *Discharge plan: home with *
--- NOTE | 2020-07-28 09:50 | NUR ---
medicated now with tyelnol 650mg for c/os headache, full assessment completed, see interventions for further info, states was up to bathroom and had some nausea and dry heaves but feels ok now
--- NOTE | 2020-07-28 10:46 | NUR ---
Initial visit; Patient thanked [employer] for offering prayer and God's blessings for a thorough and rapid recovery.
--- NOTE | 2020-07-28 11:06 | NUR ---
resting now, states headache is better but not completely gone, Dr Copeland was in to see patient
[2020-07-28 11:37] VITALS: BP 84/54; PULSE 60; TEMP 98.5
--- NOTE | 2020-07-28 11:43 | NUR ---
dressing removed from placement of ICD and loop recorder removal, BP 86/54, Dr Copeland notified of blood pressure after giving sotolol this am and states he is OK with BP, incision at placement of ICD is CD&I
--- NOTE | 2020-07-28 12:30 | NUR ---
resting in bed without needs
--- NOTE | 2020-07-28 13:50 | NUR ---
appears to be sleeping, in bed with eyes closed, resp quiet and easy
--- NOTE | 2020-07-28 14:54 | NUR ---
resting in bed, REPEATER CHIEF in to see patient, patient denies needs
[2020-07-28 16:00] VITALS: BP 105/61; PULSE 69; TEMP 98.5
--- NOTE | 2020-07-28 18:30 | NUR ---
lying back in bed and trying to eat supper, declines needing help to sit up and eat
--- NOTE | 2020-07-28 20:00 | NUR ---
PATIENT IS CALM IN THE ROOM.REPORTS OF HEADACHE MEDS GIVEN PER ORDER.NO OTHER NEEDS AT THIS TIME.
[2020-07-28 20:46] VITALS: BP 101/53; PULSE 81; TEMP 98.9
[2020-07-29] VITALS (10 sets, daily range): BP systolic 96–137; BP diastolic 50–74; PULSE 63–85; TEMP 97.9–98.7
--- NOTE | 2020-07-29 06:17 | NUR ---
PATIENT HAD A RESTFUL NIGHT.DENIES PAIN.ON NPO FOR EP STUDY TODAY,NO OTHER NEEDS AT THIS TIME.
[2020-07-29 07:04] LABS: CALCIUM 8.5 mg/dL (8.4-10.2); CREATININE, serum 0.5 (0.52-1.25); POTASSIUM 3.8 mmol/L (3.4-5.0)
--- NOTE | 2020-07-29 10:00 | NUR ---
Patient alert and oriented, answers questions appropriately. See assessment. Incision to left chest with edges well approximated, no redness or drainage noted. Sling in place to LUE. Heart tones strong and even, no c/o chest pain or pressure. No other c/o at this time.
[2020-07-29] MEDS ORDERED: CEPHALEXIN500 M1 PO (11:49)
[2020-07-29] MEDS ORDERED: BETAPACE 80MG80 MG PO (11:50)
--- NOTE | 2020-07-29 17:16 | NUR ---
Discharge instructions reviewed with patient, verbalized understanding. Discharged via wheelchair to auto/home with spouse at 1710.
== END 2020-07-29 17:10 | disposition home or self-care (01) | DRG 227 ==
LOC: COL.CAR 07:04 → SURG 11:07 → COL.CAR 11:23 → SURG 11:24
PROVIDERS: ADMIT Internal Medicine Cardiovascular Disease
PROC: 0JH608Z Insertion of Defibrillator Generator into Chest Subcutaneous Tissue and Fascia, Open Approach (ICD-10-PCS; principal; 2020-07-27)
PROC: 02HK3KZ Insertion of Defibrillator Lead into Right Ventricle, Percutaneous Approach (ICD-10-PCS; 2020-07-27)
PROC: 02H63KZ Insertion of Defibrillator Lead into Right Atrium, Percutaneous Approach (ICD-10-PCS; 2020-07-27)
PROC: 0JPT32Z Removal of Monitoring Device from Trunk Subcutaneous Tissue and Fascia, Percutaneous Approach (ICD-10-PCS; 2020-07-27)
DX: I47.2 Ventricular tachycardia (principal); I10 Essential (primary) hypertension; M06.9 Rheumatoid arthritis, unspecified; J45.909 Unspecified asthma, uncomplicated; E66.9 Obesity, unspecified; Z90.49 Acquired absence of other specified parts of digestive tract; Z88.6 Allergy status to analgesic agent; Z88.2 Allergy status to sulfonamides; Z88.8 Allergy status to other drugs, medicaments and biological substances; Z20.822 Contact with and (suspected) exposure to COVID-19; Z68.28 Body mass index [BMI] 28.0-28.9, adult
CPT/HCPCS: C1769; C1777; C1894; C1898; J0690; J2250; J2405; J2704; J3010; J7030

== ENCOUNTER 2020-08-08 17:05 | Emergency (ER) | payer MEDICARE ==
[~2020-08-08] VITALS: Ht 172.7 cm; Wt 80.9 kg
[~2020-08-08 17:05] MED LIST changes: +BETAPACE 80MG80 MG PO; +CELESTONE30 MG/5 ML INJ; +D3-5050000 IU PO; +HYGROTON 2525 MG/TAB; +LIDODERM 5% PATC1 EA TP
[2020-08-08 17:21] VITALS: TEMP 99.1
[2020-08-08 17:47] LABS: BASO % 0.4 % (0.0-2.0); EOS # 0.1 (0.0-0.7); EOS % 1.5 % (0-4.0); GRAN # 5.3 (1.4-6.5); GRAN % 57.6 % (42.2-75.2); LYMPH # 3.1 (1.2-3.4); LYMPH % 33.8 % (20.0-51.0); MEAN CELL VOLUME 87 fl (80.0-100.0); MEAN CORPUSCULAR HEMOGLOBIN 29 pg (27.0-31.0); MEAN CORPUSCULAR HGB CONC 33 g/dl (33.0-37.0); MEAN PLATELET VOLUME 10.3 fl (7.4-10.4); MONO # 0.6 (0.1-0.6); MONO % 6.6 % (1.7-9.3); PLATELET COUNT 248 K/mm3 (130-400); RED BLOOD COUNT 4.17 M/mm3 (4.10-5.30)
[2020-08-08 17:49] LABS: HEMATOCRIT 36.3 % (37.0-47.0)
[2020-08-08 17:55] LABS: INR 1.1 (0.8-3.0); PROTHROMBIN TIME 11.8 SECONDS (9.7-12.8)
[2020-08-08 17:58] LABS: ALBUMIN 3.6 gm/dL (3.5-5.0); BILIRUBIN,TOTAL 0.3 mg/dL (0.0-1.0); CREATININE, serum 0.6 (0.52-1.25); PARTIAL THROMBOPLASTIN TIME 30.5 SECONDS (26.0-37.0); POTASSIUM 3.7 mmol/L (3.4-5.0); TOTAL PROTEIN 6.6 gm/dL (6.4-8.2)
[2020-08-08 18:08] VITALS: BP 128/82; PULSE 78
== END 2020-08-08 18:08 | disposition home or self-care (01) ==
LOC: COL.ER 17:05
PROVIDERS: Family Medicine
DX: R20.2 Paresthesia of skin (principal); M79.7 Fibromyalgia; J45.909 Unspecified asthma, uncomplicated; G43.909 Migraine, unspecified, not intractable, without status migrainosus; K21.9 Gastro-esophageal reflux disease without esophagitis; E66.9 Obesity, unspecified; E03.9 Hypothyroidism, unspecified; Z98.84 Bariatric surgery status; Z88.6 Allergy status to analgesic agent; Z79.891 Long term (current) use of opiate analgesic

== ENCOUNTER 2020-08-16 07:14 | Observation (INO) | payer MEDICARE ==
[2020-08-16] VITALS (8 sets, daily range): BP systolic 98–118; BP diastolic 60–74; PULSE 63–71; TEMP 97.5–98.1
--- NOTE | 2020-08-16 10:02 | NUR ---
Patient admitted to room 323 direct admit at [address]15 for kidney stone per Dr Pollard. See assessment. NPO since 2300 08/15/20. Took Tylenol 1000mg po at 0700. C/o intermittent right flank pain. Consent signed. No other c/o at this time.
--- NOTE | 2020-08-16 12:13 | NUR ---
Discharge Plan: Home Sw met with the pt who stated her preference to return home once medically stable. The pt lives at home with her , Ricky (ph#: [phone]) and the person to notify is her siser, Janak (ph# [phone]). The pt PCP is Todd Rodriguez and uses [facility] for her pharmacy. The pt is independent and ues no DME. The pt does not have a DPAO-HC and is not interested in one at this time. No other needs stated at this time. Sw to follow up as needed.
--- NOTE | 2020-08-16 12:22 | NUR ---
Patient returns from cysto at 1135. Assessment unchanged except urinary stents taped to left thigh. No c/o at this time.
--- NOTE | 2020-08-16 14:42 | NUR ---
Discharge instructions reviewed with patient, verbalized understanding. Discharged via wheelchair to auto/home with family at 1439.
== END 2020-08-16 14:39 | disposition home or self-care (01) ==
LOC: SURG 07:14
PROVIDERS: ADMIT Urology
DX: R10.12 Left upper quadrant pain (principal); J45.909 Unspecified asthma, uncomplicated; M79.7 Fibromyalgia; E03.9 Hypothyroidism, unspecified; M06.9 Rheumatoid arthritis, unspecified; Z90.49 Acquired absence of other specified parts of digestive tract; Z79.890 Hormone replacement therapy; Z79.899 Other long term (current) drug therapy; Z87.442 Personal history of urinary calculi
CPT/HCPCS: C1769; C2617; G0378; G0379; J0690; J1100; J1885; J2405; J2704; J2765; J3010; J7030; Q9967

== ENCOUNTER 2020-11-18 22:12 | Emergency (ER) | payer MEDICARE ==
[~2020-11-18] VITALS: Ht 172.7 cm; Wt 84.5 kg
[2020-11-18 22:17] VITALS: TEMP 97.8
[2020-11-18 22:33] LABS: BASO # 0.1 K/mm3 (0.0-0.2); BASO % 0.4 % (0.0-2.0); EOS # 0.2 K/mm3 (0.0-0.7); EOS % 1.5 % (0-4.0); GRAN # 5.8 K/mm3 (1.4-6.5); GRAN % 51.9 % (42.2-75.2); HEMATOCRIT 39.3 % (37.0-47.0); HEMOGLOBIN 12.8 g/dl (12.5-16.0); LYMPH # 4.4 K/mm3 (1.2-3.4); LYMPH % 39.1 % (20.0-51.0); MEAN CELL VOLUME 89 fl (80.0-100.0); MEAN CORPUSCULAR HEMOGLOBIN 29 pg (27.0-31.0); MEAN CORPUSCULAR HGB CONC 33 g/dl (33.0-37.0); MEAN PLATELET VOLUME 9.9 fl (7.4-10.4); MONO # 0.8 K/mm3 (0.1-0.6); MONO % 6.9 % (1.7-9.3); PLATELET COUNT 291 K/mm3 (130-400); RED BLOOD COUNT 4.41 M/mm3 (4.10-5.30); REDCELL DISTRIBUTION WIDTH-CV 13.4 % (11.5-14.5)
[2020-11-18 22:51] LABS: ALANINE AMINOTRANSFERASE 18 U/L (0-55); ALBUMIN 3.4 gm/dL (3.4-4.8); ALKALINE PHOSPHATASE 91 U/L (0-750); ANION GAP 11 mmol/L (7-16); AST,SGOT 21 U/L (5-34); BILIRUBIN,TOTAL 0.3 mg/dL (0.2-1.2); BLOOD UREA NITROGEN 15 mg/dL (10-20); CALCIUM 9.1 mg/dL (8.4-10.2); CARBON DIOXIDE 19 mmol/L (23-31); CHLORIDE 111 mmol/L (98-107); CREATININE, serum 0.73 mg/dL (0.57-1.11); GLUCOSE 86 mg/dL (70-99); POTASSIUM 3.5 mmol/L (3.5-4.5); SODIUM 141 mmol/L (136-145); TOTAL PROTEIN 6.9 gm/dL (6.2-8.1)
[2020-11-18 22:59] LABS: TROPONIN-I < 0.010 ng/mL (0.00-0.033)
[2020-11-18 23:46] VITALS: BP 97/67; PULSE 72
== END 2020-11-18 23:46 | disposition home or self-care (01) ==
LOC: COL.ER 22:12
PROVIDERS: Physician Assistant
DX: Z86.79 Personal history of other diseases of the circulatory system (principal); Z95.810 Presence of automatic (implantable) cardiac defibrillator; J45.909 Unspecified asthma, uncomplicated; E03.9 Hypothyroidism, unspecified; Z79.890 Hormone replacement therapy; Z79.899 Other long term (current) drug therapy

== ENCOUNTER 2020-12-16 08:28 | Inpatient (IN) | payer MEDICARE ==
[~2020-12-16] VITALS: Ht 172.7 cm; Wt 94.1 kg
[2020-12-21 09:12] VITALS: BP 97/57; PULSE 68; TEMP 98.4
[2020-12-21 09:52] LABS: BASO % 0.4 % (0.0-2.0); EOS # 0.1 K/mm3 (0.0-0.7); EOS % 1.9 % (0-4.0); GRAN # 3.8 K/mm3 (1.4-6.5); GRAN % 51.5 % (42.2-75.2); HEMOGLOBIN 12.3 g/dl (12.5-16.0); LYMPH # 2.8 K/mm3 (1.2-3.4); LYMPH % 38.2 % (20.0-51.0); MEAN CELL VOLUME 89 fl (80.0-100.0); MEAN CORPUSCULAR HEMOGLOBIN 30 pg (27.0-31.0); MEAN CORPUSCULAR HGB CONC 33 g/dl (33.0-37.0); MONO # 0.6 K/mm3 (0.1-0.6); MONO % 7.9 % (1.7-9.3); PLATELET COUNT 271 K/mm3 (130-400); RED BLOOD COUNT 4.17 M/mm3 (4.10-5.30); REDCELL DISTRIBUTION WIDTH-CV 13.1 % (11.5-14.5)
[2020-12-21 09:56] LABS: PROTHROMBIN TIME 11.2 SECONDS (9.7-12.8)
[2020-12-21 10:11] LABS: ALBUMIN 3.1 gm/dL (3.4-4.8); BILIRUBIN,TOTAL 0.4 mg/dL (0.2-1.2); CALCIUM 8.8 mg/dL (8.4-10.2); CREATININE, serum 0.66 mg/dL (0.57-1.11); MAGNESIUM 1.9 mg/dL (1.6-2.6); POTASSIUM 3.5 mmol/L (3.5-4.5); TOTAL PROTEIN 6.1 gm/dL (6.2-8.1)
[2020-12-21] MEDS ORDERED: ARMOUR THYROID60 MG PO (10:43)
[2020-12-21] MEDS ORDERED: WOMEN'S DAILY1 TAB PO (10:46)
[2020-12-21] MEDS ORDERED: AIRBORNE ELDER1 EACH PO (10:51)
[2020-12-21 12:30] VITALS: BP 103/63; PULSE 83; TEMP 97.9
--- NOTE | 2020-12-21 14:02 | NUR ---
market research worker met with patient to discuss discharge plan. Patient states that she lives at home with her Ricky([phone]) here in [place]. Patient reports that she is independent with all of her ADL's and she does not utilize any medical equipment to assist with mobility. Reports to not having any O2 needs. Patient reports that her PCP is at [facility] and that she utilizes [facility] for perscription needs with no cost difficulty. Patient reports that she does have a DPOA-HC established and that [facility] has a copy of it on file. Permission given to contact [facility] and request a copy. Patient is planning on returning home post dc with no concerns. [facility] contacted and the cracker and cookie machine operator verbalizes that since Dr. Moreno has left, that this patient has been assigned to Dr. Ojeda. Message left for Dr. Ojeda's nurse. Discharge plan: Home
[2020-12-21 17:20] VITALS: BP 111/60; PULSE 86; TEMP 98.4
[2020-12-21 19:30] VITALS: BP 110/48; PULSE 94; TEMP 98.5
[2020-12-22] VITALS (8 sets, daily range): BP systolic 89–117; BP diastolic 42–57; PULSE 68–85; TEMP 98–98.4
--- NOTE | 2020-12-22 02:28 | NUR ---
Patient resting comfortably in bed upon enter the room. No acute distress noted. Call light in reach. Will continue to monitor.
[2020-12-22 07:29] LABS: CALCIUM 8.8 mg/dL (8.4-10.2); CREATININE, serum 0.71 mg/dL (0.57-1.11); MAGNESIUM 1.9 mg/dL (1.6-2.6); POTASSIUM 3.7 mmol/L (3.5-4.5)
[2020-12-22 07:32] LABS: PROTHROMBIN TIME 11.6 SECONDS (9.7-12.8)
[2020-12-22 08:58] LABS: HEMOGLOBIN 11.9 g/dl (12.5-16.0); MEAN CELL VOLUME 88 fl (80.0-100.0); MEAN CORPUSCULAR HEMOGLOBIN 29 pg (27.0-31.0); MEAN CORPUSCULAR HGB CONC 33 g/dl (33.0-37.0); PLATELET COUNT 282 K/mm3 (130-400); RED BLOOD COUNT 4.15 M/mm3 (4.10-5.30); REDCELL DISTRIBUTION WIDTH-CV 13.2 % (11.5-14.5)
[2020-12-22 09:05] LABS: HEMATOCRIT 36.6 % (37.0-47.0)
--- NOTE | 2020-12-22 10:08 | NUR ---
Notified Dr. Dumont of pt low blood pressure this AM. Received telephone orders to give 200mg of Cordarone this AM versus 400mg.
[2020-12-22] MEDS ORDERED: HAIRSKINNAILS PO (10:47)
--- NOTE | 2020-12-22 12:47 | NUR ---
PT ALERT AND ORIENTED. PT COMPLAINING OF CONTINUED HEADACHE. MEDICATIONS GIVEN PER ORDERS. PT LUNGS CLEAR TO AUSCULTATION. PT HAS ACTIVE BOWEL SOUNDS, SOFT, NON-TENDER. PT IS ABLE TO AMBULATE INDEPENDENTLY IN ROOM. MEDICATION RECONCILIATION REDONE THIS SHIFT.
--- NOTE | 2020-12-22 16:37 | NUR ---
PT REPORTS BLURRY VISION, HAS IMPROVED A BIT. WILL NOTIFY CARDIOLOGY OF NEW OCCURRENCE.
--- NOTE | 2020-12-22 17:05 | NUR ---
Pt continuing on plan of care, pt reporting headache alelviated with medications prn. Pt reporting blurry vision, notified Dr. Dumont. Pt received bolus of 1000ml total (500ml x2) over course of shift. Pt blood pressure slightly elevated after boluses. Pt independent in room, no significant changes noted in pt status this shift.
--- NOTE | 2020-12-22 17:08 | NUR ---
notified Dr. Dumont of pt reporting blurry vision, received telephone orders to give 200mg of amiodarone instead of 400mg for PM medication pass.
[2020-12-23 04:19] VITALS: BP 88/50; PULSE 72; TEMP 98.1
[2020-12-23 04:39] VITALS: BP 107/54; PULSE 72
--- NOTE | 2020-12-23 06:18 | NUR ---
PT A/O, VITAL SIGNS STABLE. NO COMPLAINTS OF CHEST PAIN, DIZZINESS, OR PALPIATIONS. SR ON TELE WITH RATES CONTROLLED. BEGINNING OF SHIFT SHE COMPLAINED OF HEADACHE AND SLIGHT BLURRED VISION. AT END OF SHIFT PT DENIES HEADACHE AND VISION IMPROVED. SEE EMAR/MAR FOR OTHER DETAILS.
[2020-12-23 07:03] LABS: PROTHROMBIN TIME 11.1 SECONDS (9.7-12.8)
[2020-12-23 07:17] LABS: CALCIUM 8.7 mg/dL (8.4-10.2); CREATININE, serum 0.68 mg/dL (0.57-1.11); MAGNESIUM 1.9 mg/dL (1.6-2.6)
[2020-12-23 07:47] VITALS: BP 124/55; PULSE 73; TEMP 97.6
[2020-12-23 11:59] VITALS: BP 133/64; PULSE 78; TEMP 98
[2020-12-23 16:58] VITALS: BP 104/60; PULSE 84; TEMP 98.2
[2020-12-23 21:00] VITALS: BP 124/58; PULSE 79; TEMP 98.8
[2020-12-24 01:59] VITALS: BP 144/59; PULSE 76; TEMP 97.7
--- NOTE | 2020-12-24 06:16 | NUR ---
PT COMPLAINS OF HEADACHE AT 0500 AND REQUESTS MIGRAINE MEDICATION WHICH IS ADMINISTERED AT THIS TIME. NO ADDITIONAL CONCERNS OVERNIGHT, PT TOLERATED AMIO WELL. CALL LIGHT IN REACH.
[2020-12-24 06:30] VITALS: BP 105/65; PULSE 73; TEMP 97.8
[2020-12-24 06:56] LABS: PROTHROMBIN TIME 10.7 SECONDS (9.7-12.8)
[2020-12-24 07:16] LABS: CALCIUM 9.3 mg/dL (8.4-10.2); CREATININE, serum 0.77 mg/dL (0.57-1.11)
--- NOTE | 2020-12-24 07:23 | NUR ---
REPORT RECIEVED FROM JESSE CHARLES. PT RESTING IN BED. NO COMPLAINTS OF PAIN OR DYSPNEA. CALL LIGHT WITHIN REACH.
--- NOTE | 2020-12-24 09:49 | NUR ---
PT ASSESSED. NO SIGNS OF DISTRESS NOTED. NO COMPLAINTS OF PAIN OR DSYPNEA. NO QUESTIONS OR CONCERNS AT THIS TIME. CALL LIGHT WITHIN REACH
[2020-12-24 11:08] VITALS: BP 115/56; PULSE 75; TEMP 97.6
--- NOTE | 2020-12-24 11:49 | NUR ---
First visit from the sales administration specialist. No needs right now.
--- NOTE | 2020-12-24 15:26 | NUR ---
Warp Tension Tester collaborated with JESSE Daly who advised patient has been independent in her room.
[2020-12-24 15:53] VITALS: BP 101/63; PULSE 82; TEMP 98.5
--- NOTE | 2020-12-24 18:20 | NUR ---
PT RESTING IN BED. NO COMPLAINTS OF PAIN OR DYSPNEA. NO CONCERNS OR QUESTIONS AT THIS TIME. CALL LIGHT WITHIN REACH
[2020-12-24 20:32] VITALS: BP 115/60; PULSE 90; TEMP 98.8
[2020-12-25 00:34] VITALS: BP 90/49; BP 93/55; PULSE 71; TEMP 98.4
[2020-12-25 04:31] VITALS: BP 105/48; PULSE 78; TEMP 98
--- NOTE | 2020-12-25 04:56 | NUR ---
Rested quietly throughout night, no c/o pain, VS stable, telemetry in use, call wheat w/i reach.
[2020-12-25 07:02] VITALS: BP 109/58; PULSE 76; TEMP 97.9
[2020-12-25 07:46] LABS: PROTHROMBIN TIME 11.6 SECONDS (9.7-12.8)
[2020-12-25 07:55] LABS: CALCIUM 9.5 mg/dL (8.4-10.2); CREATININE, serum 0.75 mg/dL (0.57-1.11)
--- NOTE | 2020-12-25 08:10 | NUR ---
Scheduled medication given. Shift assessment preformed. Patient C/O headache rated a /10. PRN fiorecet given. Hot pad placed on back of neck. Patient denies any chest pain, SOA, discomfort, or further needs at this time. Call light in reach. VSS. Patient A&O.
[2020-12-25] MEDS ORDERED: CORDARONE200 MG/TAB PO (10:42)
[2020-12-25 12:09] VITALS: BP 108/60; PULSE 72; TEMP 98
--- NOTE | 2020-12-25 14:36 | NUR ---
Patient deemed fit for discharge. IV DC'd, catheter intact, no signs of phlebitis. Discharge instructions/education given. All questions and concerns answered. Patient denies any chest pain, SOA, discomfort, or further needs at this time. VSS. Patient A&O. Patient escorted from building via wheelchair by [facility] Staff. Friend transporting home.
== END 2020-12-25 14:30 | disposition home or self-care (01) | DRG 310 ==
LOC: MEDICAL 12-21 06:58
PROVIDERS: ADMIT Internal Medicine Cardiovascular Disease
DX: I47.1 Supraventricular tachycardia (principal); I48.0 Paroxysmal atrial fibrillation; I10 Essential (primary) hypertension; Z95.810 Presence of automatic (implantable) cardiac defibrillator
CPT/HCPCS: J2212

== ENCOUNTER 2021-01-03 12:11 | Emergency (ER) | payer MEDICARE ==
[~2021-01-03] VITALS: Ht 172.7 cm; Wt 81.8 kg
[~2021-01-03 12:11] MED LIST changes: +AIRBORNE ELDER1 EACH PO; +CORDARONE200 MG/TAB PO; +HAIRSKINNAILS PO; +WOMEN'S DAILY1 TAB PO
[2021-01-03 12:44] VITALS: TEMP 98.1
[2021-01-03] MEDS ORDERED: PACERONE100 MG PO (13:25)
[2021-01-03 15:00] LABS: BASO % 0.3 % (0.0-2.0); EOS % 0.1 % (0-4.0); GRAN # 5.2 K/mm3 (1.4-6.5); GRAN % 76.3 % (42.2-75.2); HEMOGLOBIN 12.1 g/dl (12.5-16.0); LYMPH # 1.3 K/mm3 (1.2-3.4); LYMPH % 18.4 % (20.0-51.0); MEAN CELL VOLUME 86 fl (80.0-100.0); MEAN CORPUSCULAR HEMOGLOBIN 29 pg (27.0-31.0); MEAN CORPUSCULAR HGB CONC 34 g/dl (33.0-37.0); MEAN PLATELET VOLUME 9.9 fl (7.4-10.4); MONO # 0.3 K/mm3 (0.1-0.6); MONO % 4.8 % (1.7-9.3); PLATELET COUNT 290 K/mm3 (130-400); RED BLOOD COUNT 4.13 M/mm3 (4.10-5.30); REDCELL DISTRIBUTION WIDTH-CV 13.2 % (11.5-14.5)
[2021-01-03 15:01] LABS: HEMATOCRIT 35.6 % (37.0-47.0)
[2021-01-03 15:08] LABS: ALBUMIN 3.6 gm/dL (3.4-4.8); BILIRUBIN,TOTAL 0.3 mg/dL (0.2-1.2); CALCIUM 8.7 mg/dL (8.4-10.2); CREATININE, serum 0.69 mg/dL (0.57-1.11); POTASSIUM 3.9 mmol/L (3.5-4.5); TOTAL PROTEIN 6.7 gm/dL (6.2-8.1)
[2021-01-03 15:14] LABS: TROPONIN-I 0.011 ng/mL (0.00-0.033)
[2021-01-03 15:30] VITALS: BP 140/75; PULSE 71
== END 2021-01-03 15:43 | disposition home or self-care (01) ==
LOC: COL.ER 12:11
PROVIDERS: Student in an Organized Health Care Education/Training Program
DX: R22.43 Localized swelling, mass and lump, lower limb, bilateral (principal); Z88.6 Allergy status to analgesic agent; Z79.891 Long term (current) use of opiate analgesic
CPT/HCPCS: J1100

== ENCOUNTER 2021-01-30 10:20 | Emergency (ER) | payer MEDICARE ==
[~2021-01-30] VITALS: Ht 172.7 cm; Wt 84.1 kg
[~2021-01-30 10:20] MED LIST changes: +PACERONE100 MG PO
[2021-01-30 10:29] VITALS: TEMP 98.3
[2021-01-30] MEDS ORDERED: ARMOUR THYROID60 MG PO (10:37)
[2021-01-30] MEDS ORDERED: PHRENILIN 325 M1 TAB (10:38)
[2021-01-30] MEDS ORDERED: LYRICA 25MG CAP25 MG PO (10:38)
[2021-01-30] MEDS ORDERED: PREDNISONE20 MG PO (10:54)
[2021-01-30 11:30] VITALS: BP 135/83; PULSE 84
== END 2021-01-30 11:43 | disposition home or self-care (01) ==
LOC: COL.ER 10:20
DX: J32.9 Chronic sinusitis, unspecified (principal); Z95.0 Presence of cardiac pacemaker
CPT/HCPCS: J7512

== ENCOUNTER 2021-03-22 11:16 | Emergency (ER) | payer MEDICARE ==
[~2021-03-22] VITALS: Ht 172.7 cm; Wt 86.4 kg
[~2021-03-22 11:16] MED LIST changes: +LYRICA 25MG CAP25 MG PO; +PHRENILIN 325 M1 TAB
[2021-03-22 11:22] VITALS: TEMP 97.9
[2021-03-22 12:53] VITALS: BP 108/69; PULSE 83
== END 2021-03-22 13:07 | disposition home or self-care (01) ==
LOC: COL.ER 11:16
DX: S83.92XA Sprain of unspecified site of left knee, initial encounter (principal); Z88.6 Allergy status to analgesic agent; W07.XXXA Fall from chair, initial encounter
CPT/HCPCS: 31289; L1830; L1846

== ENCOUNTER → 2021-04-16 | Outpatient (CLI) | payer MEDICARE | LOC: COL.RAD 12:11 | DX: S83.242A Other tear of medial meniscus, current injury, left knee, initial encounter (principal) ==

== ENCOUNTER → 2021-06-01 | Outpatient (CLI) | payer MEDICARE | LOC: COL.LAB 14:38 | DX: J30.1 Allergic rhinitis due to pollen (principal) ==

== ENCOUNTER → 2021-06-07 | Outpatient (CLI) | payer MEDICARE | LOC: COL.PUL 04-20 10:00 | DX: J45.40 Moderate persistent asthma, uncomplicated (principal) | CPT/HCPCS: J7674 ==

== ENCOUNTER 2021-08-18 18:13 | Emergency (ER) | payer MEDICARE ==
[~2021-08-18] VITALS: Ht 172.7 cm; Wt 95.9 kg
[2021-08-18 18:20] VITALS: BP 154/66; TEMP 98
[2021-08-18 18:59] LABS: BASO % 0.3 % (0.0-2.0); EOS # 0.1 K/mm3 (0.0-0.7); EOS % 0.9 % (0.0-4.0); GRAN # 5.7 K/mm3 (1.4-6.5); GRAN % 63.7 % (42.2-75.2); HEMATOCRIT 39.3 % (37.0-47.0); HEMOGLOBIN 12.8 g/dl (12.5-16.0); LYMPH # 2.4 K/mm3 (1.2-3.4); MEAN CELL VOLUME 87 fl (80.0-100.0); MEAN CORPUSCULAR HEMOGLOBIN 28 pg (27-31); MEAN CORPUSCULAR HGB CONC 33 g/dl (33.0-37.0); MEAN PLATELET VOLUME 9.8 fl (7.4-10.4); MONO # 0.7 K/mm3 (0.1-0.6); MONO % 7.9 % (1.7-9.3); PLATELET COUNT 267 K/mm3 (130-400); RED BLOOD COUNT 4.54 M/mm3 (4.10-5.30)
[2021-08-18 19:20] LABS: ALBUMIN 3.5 gm/dL (3.4-4.8); BILIRUBIN,TOTAL 0.3 mg/dL (0.2-1.2); CALCIUM 8.8 mg/dL (8.4-10.2); CREATININE, serum 0.86 mg/dL (0.57-1.11); POTASSIUM 4.1 mmol/L (3.5-4.5); TOTAL PROTEIN 6.9 gm/dL (6.2-8.1)
[2021-08-18] MEDS ORDERED: PREDNISONE50 MG PO (19:53)
[2021-08-18] MEDS ORDERED: DOXYCYCLINE 10100 MG PO (19:53)
[2021-08-18 20:07] VITALS: PULSE 70
== END 2021-08-18 20:07 | disposition home or self-care (01) ==
LOC: COL.ER 18:13
PROVIDERS: Emergency Medicine
DX: B34.9 Viral infection, unspecified (principal); Z88.2 Allergy status to sulfonamides; Z20.822 Contact with and (suspected) exposure to COVID-19; Z28.310 Unvaccinated for COVID-19
CPT/HCPCS: J7512

== ENCOUNTER 2021-09-05 19:05 | Emergency (ER) | payer MEDICARE ==
[~2021-09-05] VITALS: Ht 172.7 cm; Wt 95.5 kg
[~2021-09-05 19:05] MED LIST changes: +PREDNISONE50 MG PO
[2021-09-05 19:12] VITALS: TEMP 97.4
[2021-09-05 19:53] LABS: BASO % 0.4 % (0.0-2.0); EOS # 0.1 K/mm3 (0.0-0.7); EOS % 1.1 % (0.0-4.0); GRAN # 4.1 K/mm3 (1.4-6.5); GRAN % 55.8 % (42.2-75.2); HEMATOCRIT 40.1 % (37.0-47.0); HEMOGLOBIN 13.4 g/dl (12.5-16.0); LYMPH # 2.5 K/mm3 (1.2-3.4); LYMPH % 34.4 % (20.0-51.0); MEAN CELL VOLUME 87 fl (80.0-100.0); MEAN CORPUSCULAR HEMOGLOBIN 29 pg (27-31); MEAN CORPUSCULAR HGB CONC 33 g/dl (33.0-37.0); MEAN PLATELET VOLUME 9.6 fl (7.4-10.4); MONO # 0.6 K/mm3 (0.1-0.6); MONO % 8.2 % (1.7-9.3); PLATELET COUNT 296 K/mm3 (130-400); RED BLOOD COUNT 4.63 M/mm3 (4.10-5.30); REDCELL DISTRIBUTION WIDTH-CV 15.7 % (11.5-14.5)
[2021-09-05 20:14] LABS: ALBUMIN 3.5 gm/dL (3.4-4.8); BILIRUBIN,TOTAL 0.3 mg/dL (0.2-1.2); C-REACTIVE PROTEIN 0.07 mg/dL (0.00-0.50); CALCIUM 9.3 mg/dL (8.4-10.2); CREATININE, serum 0.93 mg/dL (0.57-1.11); POTASSIUM 3.8 mmol/L (3.5-4.5)
[2021-09-05 20:48] LABS: COLLECTION METHOD CLEAN CATCH
[2021-09-05 20:57] LABS: MUCOUS Present (NOT PRESENT); PH 5 (5-8); SQUAMOUS EPITHELIAL 0-2 /hpf (0-10); URINE APPEARANCE Hazy (CLEAR/HAZY); URINE BACTERIA None Seen /hpf (NONE SEEN); URINE BLOOD Negative (NEGATIVE); URINE COLOR Yellow (YELLOW); URINE GLUCOSE Negative (NEGATIVE); URINE KETONE Negative (NEGATIVE); URINE NITRATE Negative (NEGATIVE); URINE PROTEIN(semi-quant) Negative (NEGATIVE); URINE RBC 0-2 /hpf (0-2); URINE UROBILINOGEN Negative (NEGATIVE)
[2021-09-05 23:26] VITALS: BP 154/80; PULSE 76
== END 2021-09-05 23:26 | disposition home or self-care (01) ==
LOC: COL.ER 19:05
PROVIDERS: Nurse Practitioner
DX: K29.70 Gastritis, unspecified, without bleeding (principal); Z87.442 Personal history of urinary calculi; Z90.49 Acquired absence of other specified parts of digestive tract; Z28.310 Unvaccinated for COVID-19
CPT/HCPCS: J1885; J2405; J3010; J7030; Q9967

== ENCOUNTER 2021-10-03 19:44 | Emergency (ER) | payer MEDICARE ==
[~2021-10-03] VITALS: Ht 172.7 cm; Wt 96.4 kg
[2021-10-03 19:48] VITALS: TEMP 98.1
[2021-10-03 20:22] LABS: BASO % 0.4 % (0.0-2.0); EOS # 0.1 K/mm3 (0.0-0.7); EOS % 1.1 % (0.0-4.0); GRAN # 4.3 K/mm3 (1.4-6.5); HEMATOCRIT 39.2 % (37.0-47.0); LYMPH # 2.9 K/mm3 (1.2-3.4); LYMPH % 36.1 % (20.0-51.0); MEAN CELL VOLUME 88 fl (80.0-100.0); MEAN CORPUSCULAR HEMOGLOBIN 29 pg (27-31); MEAN CORPUSCULAR HGB CONC 33 g/dl (33.0-37.0); MEAN PLATELET VOLUME 9.7 fl (7.4-10.4); MONO # 0.6 K/mm3 (0.1-0.6); MONO % 7.3 % (1.7-9.3); PLATELET COUNT 265 K/mm3 (130-400); RED BLOOD COUNT 4.45 M/mm3 (4.10-5.30); REDCELL DISTRIBUTION WIDTH-CV 14.9 % (11.5-14.5)
[2021-10-03 20:36] LABS: C-REACTIVE PROTEIN 0.11 mg/dL (0.00-0.50); CALCIUM 8.9 mg/dL (8.4-10.2); CREATININE, serum 0.82 mg/dL (0.57-1.11); POTASSIUM 3.9 mmol/L (3.5-4.5)
[2021-10-03 21:00] LABS: ERYTHROCYTE SEDIMENTATION RATE 16 mm/hr (0-30)
[2021-10-03] MEDS ORDERED: PREDNISONE20 MG PO (21:22)
[2021-10-03 21:37] VITALS: BP 112/76; PULSE 78
== END 2021-10-03 21:37 | disposition home or self-care (01) ==
LOC: COL.ER 19:44
PROVIDERS: Emergency Medicine
DX: M26.622 Arthralgia of left temporomandibular joint (principal); H92.02 Otalgia, left ear; Z95.810 Presence of automatic (implantable) cardiac defibrillator; Z86.79 Personal history of other diseases of the circulatory system; Z28.310 Unvaccinated for COVID-19; Z79.899 Other long term (current) drug therapy
CPT/HCPCS: J7512

== ENCOUNTER 2021-10-09 15:00 | Emergency (ER) | payer MEDICARE ==
[~2021-10-09] VITALS: Ht 172.7 cm; Wt 97.3 kg
[2021-10-09 15:30] VITALS: TEMP 98
[2021-10-09] MEDS ORDERED: NORCO 325 MG-51 TAB PO (16:09)
[2021-10-09 16:29] VITALS: BP 106/53; PULSE 85
== END 2021-10-09 16:32 | disposition home or self-care (01) ==
LOC: COL.ER 15:00
DX: S92.315A Nondisplaced fracture of first metatarsal bone, left foot, initial encounter for closed fracture (principal); Z88.6 Allergy status to analgesic agent; Z28.310 Unvaccinated for COVID-19; W20.8XXA Other cause of strike by thrown, projected or falling object, initial encounter

== ENCOUNTER 2022-03-18 14:42 | Inpatient (IN) | payer MEDICARE ==
[~2022-03-18] VITALS: Ht 175.3 cm; Wt 100.4 kg
[~2022-03-18 14:42] MED LIST changes: +NORCO 325 MG-51 TAB PO
[2022-03-29 09:34] VITALS: BP 139/62; PULSE 75; TEMP 97.6
[2022-03-29] MEDS ORDERED: GRALISE300 MG PO (10:33)
[2022-03-29] MEDS ORDERED: TOPROL XL 25MG25 MG PO (10:34)
[2022-03-29] MEDS ORDERED: CORDARONE200 MG/TAB PO (10:35)
[2022-03-29] MEDS ORDERED: LASIX 20MG TABL20 MG PO (10:35)
[2022-03-29] MEDS ORDERED: NEXIUM 40MG40 MG PO (10:36)
[2022-03-29 10:44] LABS: CALCIUM 8.9 mg/dL (8.4-10.2); CREATININE, serum 0.88 mg/dL (0.57-1.11); POTASSIUM 3.6 mmol/L (3.5-4.5)
[2022-03-29 11:59] VITALS: BP 130/61; PULSE 69; TEMP 98
[2022-03-29 15:26] VITALS: BP 120/56; PULSE 73; TEMP 98.8
[2022-03-29 19:15] VITALS: BP 140/73; PULSE 79; TEMP 98.7
--- NOTE | 2022-03-29 20:05 | NUR ---
Initial shift assessment done- States has a headache 09/15 and would like her Roxicodone- will give as ordered, Has Tele on- SR , no other requests. Will get Tikosyn at 2130 and EKg at 2330.
[2022-03-29 23:31] VITALS: BP 119/42; PULSE 63; TEMP 98.2
[2022-03-30 05:02] VITALS: BP 129/63; PULSE 70; TEMP 97.5
--- NOTE | 2022-03-30 06:07 | NUR ---
Has been sleeping well tonight- VSS,Tele on-SR,, no requests.
[2022-03-30 06:54] LABS: CALCIUM 8.9 mg/dL (8.4-10.2); CREATININE, serum 0.76 mg/dL (0.57-1.11); POTASSIUM 3.6 mmol/L (3.5-4.5)
[2022-03-30 08:00] VITALS: BP 118/68; PULSE 63; TEMP 98.5
--- NOTE | 2022-03-30 08:00 | NUR ---
Patient ambulating in the room. A&Ox4. VSS. IV CDI. Complaints of a headache. Nurse will notify the doctor. Call light within reach.
[2022-03-30] MEDS ORDERED: FIORICET 325 MG1 TA1 PO (08:44)
--- NOTE | 2022-03-30 09:42 | NUR ---
Continuous Pickling Line Pickler met with patient to discuss discharge planning. Patient lives in [place] with her , Ricky (ph#[phone]) and sees Dr. Moreno for primary care. [facility]. Patient does not use any DME and is independent with ADLS. Patient advised her , Ricky is her DPOA-HC. Patient plans to return home at time of discharge. Discharge Plan: Home
[2022-03-30 11:42] VITALS: BP 113/53; PULSE 62; TEMP 97.8
--- NOTE | 2022-03-30 15:33 | NUR ---
Initial visit; Patient very pleasant to talk with and was receptive to having Senior Producer keep her in her prayers. Senior Producer offered God's blessings.
[2022-03-30 16:50] VITALS: BP 99/74; PULSE 68; TEMP 98.4
[2022-03-30 19:41] VITALS: BP 123/54; PULSE 75; TEMP 98.1
--- NOTE | 2022-03-30 21:36 | NUR ---
Patient assessed around 2114. Reported mild headache, given PRN Fiorcet as requested. Remains in normal sinus rhythm on telemetry. Voices no questions, needs, or concerns at this time. In bed with call light within reach.
[2022-03-30 23:54] VITALS: BP 123/59; PULSE 64; TEMP 98.3
[2022-03-31 03:55] VITALS: BP 113/60; PULSE 66; TEMP 97.9
--- NOTE | 2022-03-31 06:04 | NUR ---
Patient given PRN Fiorcet this morning as requested. Voices no further questions, needs, or concerns at this time. In bed with call light within reac.
[2022-03-31 07:18] LABS: CALCIUM 8.9 mg/dL (8.4-10.2); CREATININE, serum 0.8 mg/dL (0.57-1.11); MAGNESIUM 2.1 mg/dL (1.6-2.6); POTASSIUM 3.9 mmol/L (3.5-4.5)
[2022-03-31 08:16] VITALS: BP 108/54; PULSE 65; TEMP 98.5
[2022-03-31] MEDS ORDERED: TIKOSYN0.5 MG PO (09:25)
--- NOTE | 2022-03-31 10:28 | NUR ---
Pt assessment finished around 909. A&Ox4. Pt awaiting for next fioricet dose at 1000 due to headache scored at 5/10. Pt refused any other pain intervention. All medication given per emar. Tikosyn given at 912. EKG notified. LFA INT is CDI, although pt is reporting some pain around IV site. Discharge orders in place. Belongings and call light are within reach.
[2022-03-31 11:24] VITALS: BP 124/68; PULSE 64; TEMP 98.2
--- NOTE | 2022-03-31 11:54 | NUR ---
Pt got assisted to use the bathroom and her HR started going to 150s-160s; called by telemetry, and notified immediately to Dr Sinclair about this event. He got notified on pt's tachycardia whenever she stands up, tries to eat, or moves. New orders received. Clonidine administered at this time.
--- NOTE | 2022-03-31 13:00 | NUR ---
Pt reported to have chest pain, described as two sharp stabs on her heart with radiation to left arm, around the same time that she got her EKG done. Psych[facility] Mental [facility] Nurse contacted and notified about this event. This WE[employer] SOFTWARE ENGINEER got instructed to proceed with the discharging of the pt and outpatient follow up will be done. Pt informed of sub prior instructions and she stated feeling good to leave.
--- NOTE | 2022-03-31 14:58 | NUR ---
Pt scorted out by PCT in a wheelchair at 1445. Pt stated feeling good at this time. LFA INT discontinued with tip intact. Discharge instructions finished and pt verbalized understanding.
== END 2022-03-31 14:45 | disposition home or self-care (01) | DRG 309 ==
LOC: MEDICAL 03-29 08:41
PROVIDERS: ADMIT Internal Medicine Cardiovascular Disease
DX: I47.1 Supraventricular tachycardia (principal); I42.9 Cardiomyopathy, unspecified; J45.909 Unspecified asthma, uncomplicated; K44.9 Diaphragmatic hernia without obstruction or gangrene; K21.9 Gastro-esophageal reflux disease without esophagitis; G43.909 Migraine, unspecified, not intractable, without status migrainosus; M19.90 Unspecified osteoarthritis, unspecified site; I49.3 Ventricular premature depolarization; M06.9 Rheumatoid arthritis, unspecified; I10 Essential (primary) hypertension; E07.9 Disorder of thyroid, unspecified; Z96.651 Presence of right artificial knee joint; I47.20 Ventricular tachycardia, unspecified; Z98.84 Bariatric surgery status; Z90.89 Acquired absence of other organs; Z95.0 Presence of cardiac pacemaker; Z90.49 Acquired absence of other specified parts of digestive tract; Z88.6 Allergy status to analgesic agent; Z88.5 Allergy status to narcotic agent; Z88.2 Allergy status to sulfonamides; Z88.8 Allergy status to other drugs, medicaments and biological substances; Z91.048 Other nonmedicinal substance allergy status; Z79.891 Long term (current) use of opiate analgesic

== ENCOUNTER 2023-01-31 15:37 | Emergency (ER) | payer MEDICARE ==
[~2023-01-31] VITALS: Ht 172.7 cm; Wt 87.7 kg
[~2023-01-31 15:37] MED LIST changes: +ARMOUR THYROID90 MG PO; +EVENITY (2210 MG/2.3 SQ; +FIORICET 325 MG1 TA1 PO; +GRALISE300 MG PO; +LASIX 20MG TABL20 MG PO; +ROCEPHIN 2GM VIAL21 IV; +TIKOSYN0.5 MG PO; +TOPROL XL 25MG25 MG PO; +ZOVIRAX INJ V1000 MG IV
[2023-01-31 16:12] LABS: BASO % 0.4 % (0.0-2.0); EOS # 0.1 K/mm3 (0.0-0.7); EOS % 1.5 % (0.0-4.0); GRAN # 4.9 K/mm3 (1.4-6.5); GRAN % 60.9 % (42.2-75.2); HEMATOCRIT 38.4 % (37.0-47.0); HEMOGLOBIN 12.5 g/dl (12.5-16.0); LYMPH # 2.4 K/mm3 (1.2-3.4); LYMPH % 30.2 % (20.0-51.0); MEAN CELL VOLUME 91 fl (80.0-100.0); MEAN CORPUSCULAR HEMOGLOBIN 30 pg (27-31); MEAN CORPUSCULAR HGB CONC 33 g/dl (33.0-37.0); MEAN PLATELET VOLUME 9.4 fl (7.4-10.4); MONO # 0.6 K/mm3 (0.1-0.6); MONO % 6.9 % (1.7-9.3); PLATELET COUNT 271 K/mm3 (130-400); RED BLOOD COUNT 4.24 M/mm3 (4.10-5.30); REDCELL DISTRIBUTION WIDTH-CV 14.6 % (11.5-14.5)
[2023-01-31 16:28] LABS: ALANINE AMINOTRANSFERASE 12 U/L (0-55); ALBUMIN 3.4 gm/dL (3.4-4.8); ALKALINE PHOSPHATASE 110 U/L (40-150); ANION GAP 10 mmol/L (7-16); AST,SGOT 19 U/L (5-34); BILIRUBIN,TOTAL 0.3 mg/dL (0.2-1.2); BLOOD UREA NITROGEN 16 mg/dL (10-20); CALCIUM 9.2 mg/dL (8.4-10.2); CARBON DIOXIDE 23 mmol/L (23-31); CHLORIDE 110 mmol/L (98-107); GLUCOSE 110 mg/dL (70-99); POTASSIUM 3.8 mmol/L (3.5-4.5); SODIUM 143 mmol/L (136-145); TOTAL PROTEIN 6.6 gm/dL (6.2-8.1)
[2023-01-31 16:34] LABS: TROPONIN-I < 0.010 ng/mL (0.00-0.033)
[2023-01-31 19:28] VITALS: BP 148/70; PULSE 85
== END 2023-01-31 19:28 | disposition home or self-care (01) ==
LOC: COL.ER 15:37
PROVIDERS: Nurse Practitioner
DX: R07.9 Chest pain, unspecified (principal); G03.0 Nonpyogenic meningitis
CPT/HCPCS: Q9967

== ENCOUNTER 2023-11-10 15:08 | Emergency (ER) | payer MEDICARE ==
[~2023-11-10] VITALS: Ht 172.7 cm; Wt 72.7 kg
[~2023-11-10 15:08] MED LIST changes: +AMOXICILLIN/CLA1 TA1 PO
[2023-11-10 15:11] VITALS: TEMP 98.3
[2023-11-10 15:38] LABS: BASO % 0.2 % (0.0-2.0); EOS # 0.1 K/mm3 (0.0-0.7); EOS % 0.6 % (0.0-4.0); GRAN # 5.4 K/mm3 (1.4-6.5); GRAN % 60.9 % (42.2-75.2); HEMATOCRIT 37.3 % (37.0-47.0); HEMOGLOBIN 12.8 g/dl (12.5-16.0); LYMPH # 2.6 K/mm3 (1.2-3.4); MEAN CELL VOLUME 88 fl (80.0-100.0); MEAN CORPUSCULAR HEMOGLOBIN 30 pg (27-31); MEAN CORPUSCULAR HGB CONC 34 g/dl (33.0-37.0); MEAN PLATELET VOLUME 10.2 fl (7.4-10.4); MONO # 0.7 K/mm3 (0.1-0.6); MONO % 8.1 % (1.7-9.3); PLATELET COUNT 270 K/mm3 (130-400); RED BLOOD COUNT 4.26 M/mm3 (4.10-5.30); REDCELL DISTRIBUTION WIDTH-CV 12.4 % (11.5-14.5)
[2023-11-10 15:55] LABS: ALBUMIN 3.3 g/dL (3.4-4.8); BILIRUBIN,TOTAL 0.3 mg/dL (0.2-1.2); CALCIUM 9.9 mg/dL (8.4-10.2); CREATININE, serum 1.44 mg/dL (0.57-1.11); INR 1.1 (0.8-3.0); POTASSIUM 3.9 mEq/L (3.5-4.5); PROTHROMBIN TIME 12.1 SECONDS (9.7-12.8); TOTAL PROTEIN 6.9 g/dl (6.2-8.1)
[2023-11-10 16:00] LABS: PARTIAL THROMBOPLASTIN TIME 35.1 SECONDS (26.0-37.0)
[2023-11-10 16:01] LABS: TROPONIN-I 0.021 ng/mL (0.00-0.033)
[2023-11-10] MEDS ORDERED: Benzonatate 100 MG CAP PO ONE (16:30)
[2023-11-10] MEDS ORDERED: TESSALON P100 MG/CAP PO (18:36)
[2023-11-10 19:00] VITALS: BP 99/67; PULSE 80
== END 2023-11-10 19:01 | disposition home or self-care (01) ==
LOC: COL.ER 15:08
PROVIDERS: Emergency Medicine
DX: J98.8 Other specified respiratory disorders (principal); R07.9 Chest pain, unspecified; R79.89 Other specified abnormal findings of blood chemistry